=== PATIENT | male | born 1940 | race Caucasian/White ===

== ENCOUNTER 2023-06-20 13:35 | Emergency (ER) | payer MEDICARE, OTHER, SELFPAY ==
[2023-06-20 13:40] VITALS: BP 178/84; BMI 30.1
[2023-06-20 14:00] VITALS: BP 148/72
[2023-06-20 14:39] VITALS: BP 155/120
[2023-06-20 15:09] VITALS: BP 136/66
--- NOTE | 2023-06-20 15:28 | ED.GENMED ---
History of Present Illness
General
Chief Complaint: Blood Pressure Problem
Source: patient and spouse
Exam Limitations: none
Time Seen by Provider: 06/20/23 14:58
Nursing documentation reviewed up to this point in time: agreed with
Travel History
Have you had any contact with someone who has COVID-19?: No
Do you have any symptoms of coronavirus? Fever > 100 degrees, chills, cough, shortness of breath, sore throat, loss of taste or smell, muscle aches, or headache?: No
History of Present Illness
History of Present Illness:
82-year-old male with a past medical history of hypertension, hyperlipidemia, atrial fibrillation, COPD who presents to the emergency room with his for evaluation after an episode of transient dizziness and feeling flushed. Patient's was
in the GI lab for colonoscopy. Patient says that he had gotten up to go across the street and walk towards the cafeteria. He says he began to feel slightly lightheaded and flushed. He says that one of the nurses in the GI lab recommended that he
get his blood pressure checked. He called his primary doctor and unfortunately were closed and so he came here to the emergency room for assessment. He says that his symptoms have resolved he now feels well. He says his feeling of lightheadedness
lasted for a few minutes although his says that he looked flushed in the face for about an hour. He denies any other symptoms including chest pain, palpitations, shortness of breath, diaphoresis, nausea, vomiting, abdominal pain, flank pain.
He has notably had recent adjustments to his medication including increasing his dose of duloxetine, adding 5 mg p.o. amlodipine a few weeks ago, and adding hydrochlorothiazide as well. He has been compliant with all medications.
Past History
Past History
ED Past Medical History: Arrthythmia, Asthma, COPD, HTN, Hypercholesterolemia and Other
ED Past Surgical History: Other (thoracotomy)
Social History
Tobacco: Former smoker
Alcohol: None
Drug: None
Personal:
Living: with family
Employment: Retired
Family History
Family History: Other (Father with aneurysm and CAD in mother with heart failure and cancer)
Review of Systems
Review of Systems
All Other Systems: ROS reviewed and negative except as documented in HPI and ROS
Constitutional: Denies fever or chills
EENT: Denies sore throat or runny nose
Respiratory: Denies cough or trouble breathing
Cardiac: Denies chest pain, diaphoresis or palpitations
ABD/GI: Denies abdominal pain, nausea, vomiting or diarrhea
: Denies flank pain
Musculoskeletal: Denies neck pain or back pain
Neurological: Reports dizzy; Denies weakness or numbness
Phy Exam
Physical Exam
Physical Exam:
General: Awake, alert, oriented x3; no acute distress
Head: Normocephalic, atraumatic
Eyes: Conjunctiva normal, EOMI, pupils equal round reactive to light
Throat: Airway intact, handling secretions
Neck: Trachea midline, supple without meningismus
Lungs: Clear to auscultation bilaterally, no wheezing, rales, rhonchi
Heart: Regular rate and rhythm, no murmurs, gallops, or rubs
Abd: Soft, non distended, nontender, no abdominal masses
Neuro: Cranial nerves grossly intact, speech fluid, no gross motor or sensory deficit
Skin: no rash
Extremities: No edema in extremities, equal pulses in all extremities
Scores
Heart Failure Risk
Heart Failure Risk Score: Not Applicable
Heart Score for Chest Pain Patients
STEMI patient?: Not applicable
Withdrawal Assessment of Alcohol
Withdrawal Assessment Completed?: Not applicable
Course
Orders/Labs/Results
Orders:
Orders
06/20/23 14:59
Electrocardiogram (*1) Urgent
Reason for Study: Hypertension, Benign
EKG- Treatment ONCE
06/20/23 15:48
Electrocardiogram (*1) Urgent
Reason for Study: Vertigo / Dizzy
EKG- Treatment ONCE
06/20/23 15:51
Basic Metabolic Panel Urgent
Complete Blood Count/With Diff Urgent
Abnormal Lab Results
06/20/23
15:51
RBC 4.07 L 10^6/uL
(4.70-6.10)
MCV 99.3 H fL
(80.0-94.0)
MCH 33.9 H pg
(27.0-31.0)
MPV 11.2 H fL
(7.4-10.4)
Absolute Lymphs (auto) 0.9 L 10^3/uL
(1.2-3.4)
Absolute Monos (auto) 0.8 H 10^3/uL
(0.1-0.6)
Lymphocytes % 17.1 L %
(20.5-51.1)
Monocytes % 14.8 H %
(1.7-9.3)
Sodium 134 L mmol/L
(135-145)
Chloride 94 L mmol/L
(98-107)
Carbon Dioxide 31 H mmol/L
(22-30)
Glucose 112 H mg/dl
(70-99)
06/20/23 15:51
06/20/23 15:51
Vital Signs
Initial and Last Documented VS:
Initial Vital Signs
Temp Pulse Resp BP Pulse Ox
36.6 C 84 16 178/84 98
06/20/23 13:40 06/20/23 13:40 06/20/23 13:40 06/20/23 13:40 06/20/23 13:40
Last Documented Vital Signs
Temp Pulse Resp BP Pulse Ox
36.6 C 61 14 136/66 99
06/20/23 13:40 06/20/23 15:15 06/20/23 15:15 06/20/23 15:09 06/20/23 15:15
MDM/Problems Addressed
Differential Diagnosis Includes:
Orthostatic hypotension, vasovagal episode, polypharmacy, hypoglycemia, symptomatic anemia, electrolyte derangement, dysrhythmia
MDM/Problems Addressed:
82-year-old male with history as documented presents after an episode of transient dizziness and facial flushing. Feeling well here symptoms have resolved. Dizziness lasted for a few minutes and flushing last for about an hour. Hypertensive in
triage otherwise normal vitals�blood pressure normalized to 136/66 by my assessment. Exam as above. Will plan to place an IV and check basic screening labs and will check an EKG. Will monitor on telemetry. Reassess after the above. He did have
recent adjustments to multiple medications in his regimen which could be contributing.
Labs reviewed: CBC shows no anemia or other clinically significant abnormalities. BMP within acceptable range. EKG shows what appears to be sinus rhythm with sinus arrhythmia and premature junctional beat�discussed with cardiology to review EKG
who agrees. Patient's blood pressure has remained stable here. He remains well-appearing, asymptomatic on clinical reassessment. No clear emergent pathology based on history and exam with negative workup as above. Patient is medically stable for
discharge to follow-up with his primary physician as an outpatient. He feels very comfortable with this plan. Spoke about return precautions all questions were answered.
Chronic conditions affecting care:
Hypertension, hyperlipidemia, atrial fibrillation
Acute Exacerbation and/or Progression of Chronic Illness:
Acutely hypertensive resolved without intervention continue to monitor but no additional antihypertensive indicated at present
Acute Exacerbation and/or Progression of Chronic Illness: HTN
*Pulse Oximetry
Patient hypoxic: no
*EKG
Interpreted by ED Provider?: Yes
Heart Rate: 70
Rate: normal
Rhythm: sinus and sinus arrhythmia
[place]: normal axis
Interval: first degree heart block
QRS Pattern: normal QRS
Ischemia: no ischemia
*Critical Care Note
Total Time (30-74mins, 75-104mins- exclusive of procedures): Not Applicable
Data Reviewed
Review of Other/Old Records Reveals: Labs and Records
Source: patient, records and spouse
Patient Management
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
ED Attending Note
-
Portions of this chart may have been created with voice recognition software.� Occasional wrong word or��sound alike� substitutions may have occurred due to the inherent limitations of voice recognition software.
Discharge Plan
Departure
Patient Disposition: Home (Routine Discharge)
Date of Disposition: 06/20/23
Time of Disposition: 17:13
Patient with high blood pressure during this ER visit?: Yes
Discharge Problem:
Hypertension, Dizziness
Instructions: High Blood Pressure (DC), Dizziness, Adult ED
Prescriptions:
No Action
multivitamin with folic acid [Tab-A-Johanna] 1 TABLET tablet
1 tab PO DAILY
finasteride 5 MG tablet
5 mg PO QPM
albuterol sulfate 1 PUFF HFA aerosol inhaler
2 puff inhalation R Q4 PRN (Reason: sob/wheezing)
cholecalciferol (vitamin D3) 2,000 UNITS tablet
2,000 units PO DAILY
lorazepam 0.5 MG tablet
0.25 mg PO DAILY PRN (Reason: anxiety)
Patient Comments:
04/25/2022: last filled 12/04/21, 30 tabs for 30 days
Eliquis 5 MG tablet
5 mg PO BID Qty: 30 0RF
sennosides-docusate sodium 1 TABLET tablet
2 tab PO QPM
metoprolol succinate [Toprol XL] 25 MG tablet extended release 24 hr
12.5 mg PO DAILY
pravastatin 20 mg tablet
20 mg PO DAILY
duloxetine 60 mg capsule,delayed release(DR/EC)
60 mg PO DAILY
Motegrity 2 mg tablet
2 mg PO DAILY
prednisone 10 mg tablet
10 mg PO DIRECTED Qty: 6 0RF
Rx Instructions:
20mg daily for 2 days starting tomorrow
10MG daily for 2 days and stop
aripiprazole [Abilify] 2 mg tablet
2 mg PO DAILY Qty: 30 0RF
Rx Instructions:
new depression medication
cefixime 400 mg capsule
400 mg PO DAILY Qty: 4 0RF
Referrals:
Dilshad Wilkerson DO [Family Provider] - Call in 1-3 days for appt
Activity Restrictions/Additional Instructions:
Thank you for visiting the Emergency Department at [facility].
1. Please schedule a follow up appointment as directed. Call first thing tomorrow morning to make an appointment.
2. If indicated, please take your medications as instructed and indicated on discharge paperwork.
3. If any of your symptoms do not improve, or persist, or become more severe within 6-12 hours, please return to the emergency department for further care.
4. Please return to the emergency department if you develop a headache, neck pain/stiffness, fever greater than 100.4F, chest pain, shortness of breath, persistent nausea, vomiting, slurred speech, difficulty walking, numbness/tingling, weakness,
signs of infection or any other symptoms that are worrisome to you.
Please call [phone] if you have any questions.
Interventions
Interventions:
*Risk Screen - Suicide Last Done: 06/20/23 13:40
*General Assessment Last Done: 06/20/23 14:56
*Neglect/Abuse Screening Last Done: 06/20/23 13:40
ED- Fall Risk Assessment Last Done: 06/20/23 14:56
*ED COVID-19 Vaccine History Last Done: 06/20/23 13:40
ED- Cardiac Assessment Last Done: 06/20/23 14:35
ED- Pulmonary Assessment Last Done: 06/20/23 14:56
Discharge Date and Time
Print Language: CHINESE
[2023-06-20 16:11] LABS: % Basophils 0.4 % (0-2); % Eosinophils 0.5 % (0-6); % Immature Granulocytes 0.5 % (0-0.5); % Lymphocytes 17.1 % (20.5-51.1); % Monocytes 14.8 % (1.7-9.3); % Neutrophils 66.7 % (42.2-75.2); Absolute Lymphocytes 0.9 10^3/uL (1.2-3.4); Absolute Monocytes 0.8 10^3/uL (0.1-0.6); Absolute Neutrophils 3.7 10^3/uL (1.4-6.5); Hematocrit 40.4 % (39.0-52.0); Hemoglobin 13.8 g/dL (13.0-18.0); Mean Corp Hgb Conc. 34.2 g/dL (33.0-37.0); Mean Corpuscular Hgb 33.9 pg (27.0-31.0); Mean Corpuscular Volume 99.3 fL (80.0-94.0); Mean Platelet Volume 11.2 fL (7.4-10.4); Nucleated Red Blood Cells % 0 % (-); Platelet Count 155 10^3/uL (130-400); Red Blood Cell Count 4.07 10^6/uL (4.70-6.10); Red Cell Dist. Width 12.6 % (11.5-14.5); White Blood Cell Count 5.5 10^3/uL (4.8-10.8)
[2023-06-20 16:54] LABS: Blood Urea Nitrogen 20 mg/dl (9-20); Calcium 9.7 mg/dl (8.4-10.2); Carbon Dioxide 31 mmol/L (22-30); Chloride 94 mmol/L (98-107); Estimated Creatinine Clearance 76 ml/min; Glucose 112 mg/dl (70-99); Sodium 134 mmol/L (135-145); eGFR > 60.00
== END 2023-06-20 17:17 | disposition home or self-care (01) ==
LOC: EMR 13:35
PROVIDERS: EMERGENCY PHYSICIAN Emergency Medicine; FAMILY PHYSICIAN Family Medicine
DX: I10 Essential (primary) hypertension (principal); R42 Dizziness and giddiness; E78.00 Pure hypercholesterolemia, unspecified; I48.91 Unspecified atrial fibrillation; Z87.891 Personal history of nicotine dependence
CPT/HCPCS: 99284; 80048; 85025; 93005

== ENCOUNTER 2023-07-17 08:41 | Emergency (ER) | payer MEDICARE, OTHER, SELFPAY ==
[2023-07-17 08:47] VITALS: BP 180/93
[2023-07-17 09:14] VITALS: BP 146/83
--- NOTE | 2023-07-17 09:28 | ED.GENMED ---
History of Present Illness
General
Chief Complaint: Abdominal Pain
Source: patient
Exam Limitations: none
Time Seen by Provider: 07/17/23 08:52
Nursing documentation reviewed up to this point in time: agreed with
Travel History
Have you had any contact with someone who has COVID-19?: No
Do you have any symptoms of coronavirus? Fever > 100 degrees, chills, cough, shortness of breath, sore throat, loss of taste or smell, muscle aches, or headache?: No
History of Present Illness
History of Present Illness:
82 y/o M with h/o Afib on eliquis, htn, hld
here with lower abd pain, nauase, back pain for about a few days
[place] feeling [place] says that he thought he was getting a UTI so he called his family doctor on 4�15 and was called in a prescription for Levaquin which patient took 1 dose of and then ended up going to urgent care on 4�16 where they took a urine sample and said
that that he had a UTI. The switched him to Macrobid which she took for 5 days. Patient says he is continue to have some urinary urgency and frequency and pressure in his lower abdomen as well as feeling nauseous. The nausea seems to be a chronic
issue for him. It got a little bit worse throughout all of this. He went to his family doctor on 4�22 who checked a urinalysis but did not tell the patient the results and sent a culture and started him empirically on Levaquin which she took 2
doses of, and patient says that he has not had a good bowel movement in the last several days. He was able to pass a little bit of stool yesterday. So he feels constipated as well as having the continued lower abdominal pain which is a little bit
into his back. He is also very nauseous. Patient has vomited up 1 time in the last 24 hours. His family doctor gave him Zofran which she has taken several doses of and he seems to not throw up but continued to have nausea. Patient is also had
some issues with depression and anxiety and had a few months ago had been going to [facility] for outpatient resources. Patient's having some anxiety that is ongoing and thus his antidepressant was increased recently. He is not suicidal or feeling
fairly anxious now. Patient does have issues with chronic constipation, when he started feeling constipated did use senna as well as a Dulcolax last night. He has not had a good bowel movement today. He denies fevers and chills, dysuria, penile
discharge, rectal pressure
Past History
Past History
ED Past Medical History: Arrthythmia, Asthma, COPD, HTN, Hypercholesterolemia and Other
ED Past Surgical History: Other (thoracotomy)
Social History
Tobacco: Former smoker
Alcohol: None
Drug: None
Personal:
Living: with family
Employment: Retired
Family History
Family History: Other (Father with aneurysm and CAD in mother with heart failure and cancer)
Review of Systems
Review of Systems
Allergies reviewed?: Yes
All Other Systems: Not applicable
Phy Exam
Physical Exam
Physical Exam:
GENERAL: Alert , in no apparent distress
EYE: pupils equal and reactive
NECK: Supple
ENT: o/p clr, dry mouth
CARDIAC: Regular rate and rhythm .
LUNGS: Clear breath sounds bilaterally, no acute respiratory distress, no wheezes/rales/rhonchi
ABDOMEN: Soft, obese, maybe mildly distended without focal tenderness, no r/g, no cvat, normal bowel sounds
Rectal there is a very small amount of stool, no fecal impaction, brown and heme-negative
NEUROLOGICAL: Alert and oriented, no focal neuro deficits
SKIN: Warm and dry, skin intact.
MUSCULOSKELETAL: No edema, well perfused. neg dewey's sign
PSYCH: Normal and appropriate interaction.
Course
Orders/Labs/Results
Orders:
Orders
07/17/23 09:19
Electrocardiogram (*1) Urgent
Reason for Study: Vertigo / Dizzy
EKG- Treatment ONCE
0.9% Sodium Chloride 500 ml [Nss] 500 ml IV BOLUS
07/17/23 09:33
Complete Blood Count/With Diff Urgent
Comprehensive Metabolic Panel Urgent
Lipase Urgent
Urinalysis Reflex To Culture Urgent
Date Specimen was Collected: 07/17/23
Time Specimen was Collected: 09:20
07/17/23 09:57
CT Abd/Pel (IV only)-DH only Urgent
Comment:
Reason For Exam: lower abd pain, back pain, nausea, constipation
07/17/23 10:36
Ondansetron Injectable [Zofran] 4 mg IV NOW STA
07/17/23 12:12
Potassium Chloride [KCl] 20 meq PO NOW STA
07/17/23 12:56
Pantoprazole [Protonix] 20 mg PO NOW STA
Abnormal Lab Results
07/17/23
09:33
RBC 4.38 L 10^6/uL
(4.70-6.10)
MCV 96.1 H fL
(80.0-94.0)
MCH 34.2 H pg
(27.0-31.0)
MPV 10.6 H fL
(7.4-10.4)
Absolute Lymphs (auto) 0.7 L 10^3/uL
(1.2-3.4)
Absolute Monos (auto) 0.8 H 10^3/uL
(0.1-0.6)
Lymphocytes % 12.7 L %
(20.5-51.1)
Monocytes % 13.9 H %
(1.7-9.3)
Sodium 128 L mmol/L
(135-145)
Potassium 3.3 L mmol/L
(3.5-5.1)
Chloride 91 L mmol/L
(98-107)
Glucose 113 H mg/dl
(70-99)
Urine Ketones Trace A
(Negative)
07/17/23 09:33
07/17/23 09:33
Vital Signs
Initial and Last Documented VS:
Initial Vital Signs
Temp Pulse Resp BP Pulse Ox
97.6 F 85 18 180/93 99
07/17/23 08:47 07/17/23 08:47 07/17/23 08:47 07/17/23 08:47 07/17/23 08:47
Last Documented Vital Signs
Temp Pulse Resp BP Pulse Ox
97.6 F 64 13 159/75 98
07/17/23 08:47 07/17/23 12:45 07/17/23 12:45 07/17/23 12:00 07/17/23 12:45
MDM/Problems Addressed
Differential Diagnosis Includes:
constipation, UTI, diverticulitis
MDM/Problems Addressed:
82-year-old male with multiple medical problems presents for intermittent crampy lower abdominal pain and back pain in the setting of a recently diagnosed UTI on his second antibiotic. Patient also feels very constipated, he normally moves his
bowels once a day but has not had a good bowel movement in several days. He has tried 1 dose of stool softener and stool laxative without relief. He is not vomiting but he is very nauseous but turns out this nausea has been ongoing for 6 months.
He sees a GI doctor. He has not had a recent endoscopy and has not prescribed a PPI chronically. His family doctor saw him a few days ago and gave him Zofran prescription which does seem to help mildly. He is not vomiting but does feel
chronically nauseous. He is on his second day of Levaquin for presumed UTI, the culture was taken in the family doctor's office 2 days ago. On exam the patient has very mild generalized lower abdominal tenderness without any focality, he has no
guarding or rebound. He has some minimal amount of stool in the colon without any fecal impaction, the stool is light brown and heme-negative. His lungs are clear. He has no focal weakness. His urinalysis showed only mild ketones. Patient has
no significant leukocytosis
His potassium was slightly low, sodium slightly low but I believe in the setting of not eating since he was told to use a clear liquid diet this is probably a hypovolemic hyponatremia. He was given a small amount of fluids and an oral dose of
potassium. His CT scan was reviewed with the radiologist, she does see a mild amount of stool in his colon but is not severely constipated. He has no other acute findings to cause for his pain. He was reevaluated after Zofran and feels somewhat
better. We will trial him home with continuing the antibiotic, presuming that maybe the urine is been partially treated. Lactulose for stool laxative rather than Dulcolax, discussed with ED attending Dr. Holland. And we will trial him on
Protonix 20 mg because of his chronic persistent nausea, he will call his GI doctor. Patient will return if worse
*Critical Care Note
Total Time (30-74mins, 75-104mins- exclusive of procedures): Not Applicable
ED Attending Note
-
Portions of this chart may have been created with voice recognition software.� Occasional wrong word or��sound alike� substitutions may have occurred due to the inherent limitations of voice recognition software.
Discharge Plan
Departure
Patient Disposition: Home (Routine Discharge)
Date of Disposition: 07/17/23
Time of Disposition: 12:38
Patient with high blood pressure during this ER visit?: No
Condition: Fair
Discharge Problem:
Constipation, Hyponatremia, Hypokalemia, Chronic nausea
Instructions: Constipation, Adult (DC), [place] Diet
Prescriptions:
New
lactulose 20 gram packet
20 g PO DAILY PRN (Reason: Constipation) 5 Days Qty: 5 0RF
pantoprazole [Protonix] 20 mg tablet,delayed release (DR/EC)
20 mg PO DAILY Qty: 7 0RF
No Action
multivitamin with folic acid [Tab-A-Johanna] 1 TABLET tablet
1 tab PO DAILY
finasteride 5 MG tablet
5 mg PO QPM
albuterol sulfate 1 PUFF HFA aerosol inhaler
2 puff inhalation R Q4 PRN (Reason: sob/wheezing)
cholecalciferol (vitamin D3) 2,000 UNITS tablet
2,000 units PO DAILY
lorazepam 0.5 MG tablet
0.25 mg PO DAILY PRN (Reason: anxiety)
Patient Comments:
04/25/2022: last filled 12/04/21, 30 tabs for 30 days
Eliquis 5 MG tablet
5 mg PO BID Qty: 30 0RF
sennosides-docusate sodium 1 TABLET tablet
2 tab PO QPM
metoprolol succinate [Toprol XL] 25 MG tablet extended release 24 hr
12.5 mg PO DAILY
pravastatin 20 mg tablet
20 mg PO DAILY
duloxetine 60 mg capsule,delayed release(DR/EC)
60 mg PO DAILY
Motegrity 2 mg tablet
2 mg PO DAILY
prednisone 10 mg tablet
10 mg PO DIRECTED Qty: 6 0RF
Rx Instructions:
20mg daily for 2 days starting tomorrow
10MG daily for 2 days and stop
aripiprazole [Abilify] 2 mg tablet
2 mg PO DAILY Qty: 30 0RF
Rx Instructions:
new depression medication
cefixime 400 mg capsule
400 mg PO DAILY Qty: 4 0RF
Referrals:
Dilshad Wilkerson DO [Family Provider] -
Activity Restrictions/Additional Instructions:
There were not any concerning findings to cause your symptoms today. You did have some stool in your colon but were not showing any signs of a bowel obstruction. Stop your senna and your Dulcolax and instead take lactulose once a day for a few
days in a row until you have a good bowel movement (no more than 5 days)
drink fluids
bland diet
if you have nausea you can try zofran every 12 hurs as needed for nausea- but you need to see a GI doctor for further work up for the nausea
take protonix once a day on an empty stomach for a week to see if this helps
you need to have yuor blood work repeated next week, so call and make an appointment with your doctor
continue your antibiotics
return for: wrosening pain, fever, vomiting, severe diarrhea, weakness, or any concerns.
Interventions
Interventions:
*Risk Screen - Suicide Last Done: 07/17/23 11:03
*General Assessment Last Done: 07/17/23 11:03
*Neglect/Abuse Screening Last Done: 07/17/23 11:03
ED- Fall Risk Assessment Last Done: 07/17/23 13:21
*ED COVID-19 Vaccine History Last Done: 07/17/23 08:47
*Nursing Disposition Last Done: 07/17/23 13:21
IT-S[facility]o-Qhmamptc[facility] Assessment Last Done: 07/17/23 09:00
Discharge Date and Time
Discharge Date/Time: 07/17/23 13:15
Print Language: SYRIAN
[2023-07-17 09:33] VITALS: BMI 29.4
[2023-07-17] MEDS: NSS 500 IV (09:36)
[2023-07-17 09:43] LABS: % Basophils 0.5 % (0-2); % Eosinophils 0.5 % (0-6); % Immature Granulocytes 0.5 % (0-0.5); % Lymphocytes 12.7 % (20.5-51.1); % Monocytes 13.9 % (1.7-9.3); % Neutrophils 71.9 % (42.2-75.2); Absolute Lymphocytes 0.7 10^3/uL (1.2-3.4); Absolute Monocytes 0.8 10^3/uL (0.1-0.6); Absolute Neutrophils 4.1 10^3/uL (1.4-6.5); Hematocrit 42.1 % (39.0-52.0); Mean Corp Hgb Conc. 35.6 g/dL (33.0-37.0); Mean Corpuscular Hgb 34.2 pg (27.0-31.0); Mean Corpuscular Volume 96.1 fL (80.0-94.0); Mean Platelet Volume 10.6 fL (7.4-10.4); Nucleated Red Blood Cells % 0 % (-); Platelet Count 144 10^3/uL (130-400); Red Blood Cell Count 4.38 10^6/uL (4.70-6.10); Red Cell Dist. Width 12.9 % (11.5-14.5); White Blood Cell Count 5.7 10^3/uL (4.8-10.8)
[2023-07-17 09:44] LABS: Urine Albumin Negative (Neg - Trace); Urine Bilirubin Negative (Negative); Urine Character Clear (Clear); Urine Color Yellow; Urine Glucose Negative (Negative); Urine Ketone Trace (Negative); Urine Leukocyte Negative (Negative); Urine Nitrite Negative (Negative); Urine Occult Blood Negative (Negative); Urine Urobilinogen Negative (Neg - 1+)
[2023-07-17 10:00] VITALS: BP 147/78
[2023-07-17 10:04] LABS: ALT (SGPT) 21 U/L (0-50); AST (SGOT) 27 U/L (17-59); Alkaline Phosphatase 60 U/L (38-126); Blood Urea Nitrogen 15 mg/dl (9-20); Calcium 9.9 mg/dl (8.4-10.2); Carbon Dioxide 30 mmol/L (22-30); Chloride 91 mmol/L (98-107); Estimated Creatinine Clearance 76 ml/min; Glucose 113 mg/dl (70-99); Lipase 87 U/L (23-300); Potassium 3.3 mmol/L (3.5-5.1); Sodium 128 mmol/L (135-145); Total Bilirubin 0.9 mg/dl (0.2-1.3); Total Protein 7.5 g/dl (6.3-8.2); eGFR > 60.00
[2023-07-17] MEDS: ZOFRAN 4 MG IV (10:56)
[2023-07-17 11:25] VITALS: BP 157/74
[2023-07-17 12:00] VITALS: BP 159/75
[2023-07-17] MEDS: KCL 20 MEQ PO (13:02)
[2023-07-17] MEDS: PROTONIX 20 MG PO (13:03)
== END 2023-07-17 13:15 | disposition home or self-care (01) ==
LOC: EMR 08:41
PROVIDERS: Physician Assistant; EMERGENCY PHYSICIAN Emergency Medicine; FAMILY PHYSICIAN Family Medicine
DX: K59.09 Other constipation (principal); E87.1 Hypo-osmolality and hyponatremia; E87.6 Hypokalemia; R11.0 Nausea
CPT/HCPCS: 99285; 96374; 74177; 80053; 81003; 83690; 85025; 93005; Q9967

== ENCOUNTER 2023-07-20 07:17 | Emergency (ER) | payer MEDICARE, OTHER, SELFPAY ==
[2023-07-20] VITALS (8 sets, daily range): BP systolic 121–145; BP diastolic 66–78; BMI 27.6
--- NOTE | 2023-07-20 07:52 | ED.GENMED ---
History of Present Illness
General
Chief Complaint: Abdominal Symptoms
Source: patient
Exam Limitations: none
Time Seen by Provider: 07/20/23 07:33
Nursing documentation reviewed up to this point in time: agreed with
Travel History
Have you had any contact with someone who has COVID-19?: No
Do you have any symptoms of coronavirus? Fever > 100 degrees, chills, cough, shortness of breath, sore throat, loss of taste or smell, muscle aches, or headache?: No
History of Present Illness
History of Present Illness:
82 yo male presents to the emergency department due to not having a bowel movement for 10 days. He was seen in the emergency department, and had a CT scan that did not show blockage. Now he is having left lower quadrant abdominal pain. He has a
history of diverticulitis as well. He still is not had a normal bowel movement.
Past History
Past History
ED Past Medical History: Arrthythmia, Asthma, COPD, HTN, Hypercholesterolemia and Other
ED Past Surgical History: Other (thoracotomy)
Social History
Tobacco: Former smoker
Alcohol: None
Drug: None
Personal:
Living: with family
Employment: Retired
Family History
Family History: Other (Father with aneurysm and CAD in mother with heart failure and cancer)
Review of Systems
Review of Systems
Allergies reviewed?: Yes
All Other Systems: Not applicable
Constitutional: Reports no symptoms
EENT: Reports no symptoms
Respiratory: Reports no symptoms
Cardiac: Reports no symptoms
ABD/GI: Reports abdominal pain and constipated
: Reports no symptoms
Musculoskeletal: Reports no symptoms
Skin: Reports no symptoms
Neurological: Reports no symptoms
Endocrine: Reports no symptoms
Hematologic/Lymphatic: Reports no symptoms
Psychiatric: Reports no symptoms
Phy Exam
Physical Exam
Physical Exam:
Physical Exam
General: no apparent distress, not acutely ill
Neck: supple. no meningeal signs. normal posterior pharynx
Heart: s1/s2 regular rate and rhythm, no murmur. equal radial
pulses.
HEENT: Pupils equal round reactive to light, EOMI
Lungs: no acute respiratory distress. clear bilaterally
Abdomen: normal bowel sounds. Mild left lower quadrant tenderness, no rebound or guarding. No CVAT
Neuro: alert and oriented. no focal neurological deficits cranial nerves II through XII intact
Skin: no rash
Psychiatric: well kept. interactive and cooperative
Extremities: no edema. no calf tenderness. negative homans. good distal pulses
Course
Orders/Labs/Results
Orders:
Orders
07/20/23 07:49
IV Insert/Care/Rem.- Treatment PRN
Iohexol [Omnipaque] See Protocol PO NOW STA
07/20/23 07:50
CT Abd/pel W Iv And Oral Contr Urgent
Comment:
Reason For Exam: LLQ abdominal pain, constipation
07/20/23 08:16
Complete Blood Count/With Diff Urgent
Comprehensive Metabolic Panel Urgent
Lipase Urgent
07/20/23 11:36
Enema- Treatment ONCE
Type: Milk of Molasses
Abnormal Lab Results
07/20/23
08:16
RBC 4.05 L 10^6/uL
(4.70-6.10)
MCV 98.5 H fL
(80.0-94.0)
MCH 33.8 H pg
(27.0-31.0)
Absolute Lymphs (auto) 0.7 L 10^3/uL
(1.2-3.4)
Absolute Monos (auto) 0.7 H 10^3/uL
(0.1-0.6)
Immature Gran % 0.6 H %
(0-0.5)
Lymphocytes % 12.8 L %
(20.5-51.1)
Monocytes % 14.1 H %
(1.7-9.3)
Sodium 130 L mmol/L
(135-145)
Chloride 91 L mmol/L
(98-107)
Carbon Dioxide 33 H mmol/L
(22-30)
Glucose 112 H mg/dl
(70-99)
07/20/23 08:16
07/20/23 08:16
Vital Signs
Initial and Last Documented VS:
Initial Vital Signs
Temp Pulse Resp BP Pulse Ox
97.4 F 60 20 145/78 100
07/20/23 07:19 07/20/23 07:19 07/20/23 07:19 07/20/23 07:19 07/20/23 07:19
Last Documented Vital Signs
Temp Pulse Resp BP Pulse Ox
97.9 F 64 16 135/66 99
07/20/23 11:00 07/20/23 11:45 07/20/23 11:00 07/20/23 11:00 07/20/23 11:45
MDM/Problems Addressed
Differential Diagnosis Includes:
Bowel obstruction, diverticulitis
MDM/Problems Addressed:
82-year-old male with constipation, no signs of bowel obstruction. Improved after enema. Instructions given on how to avoid constipation.
Chronic conditions affecting care: HTN and Arrhythmia
Acute Exacerbation and/or Progression of Chronic Illness: HTN
*Radiology
Radiology exam reviewed: radiology read reviewed (CT abdomen pelvis shows constipation.)
*Pulse Oximetry
Patient hypoxic: no
*EKG
Interpreted by ED Provider?: NA
*Restaurant Assistant Manager Interpretation
Rate: Restaurant Assistant Manager- N/A
*Critical Care Note
Total Time (30-74mins, 75-104mins- exclusive of procedures): Not Applicable
Patient Management
Social determinants of health affecting care: Living situation
Escalation/DeEscalation of care consider admission/obs:
Admit not indicated
ED Attending Note
-
Portions of this chart may have been created with voice recognition software.� Occasional wrong word or��sound alike� substitutions may have occurred due to the inherent limitations of voice recognition software.
Discharge Plan
Departure
Patient Disposition: Home (Routine Discharge)
Date of Disposition: 07/20/23
Time of Disposition: 12:52
Patient with high blood pressure during this ER visit?: Yes
Condition: Good
Discharge Problem:
Acute constipation
Instructions: Constipation, Adult (DC), BLOOD PRESSURE
Prescriptions:
No Action
multivitamin with folic acid [Tab-A-Johanna] 1 TABLET tablet
1 tab PO DAILY
finasteride 5 MG tablet
5 mg PO QPM
albuterol sulfate 1 PUFF HFA aerosol inhaler
2 puff inhalation R Q4 PRN (Reason: sob/wheezing)
cholecalciferol (vitamin D3) 2,000 UNITS tablet
2,000 units PO DAILY
lorazepam 0.5 MG tablet
0.25 mg PO DAILY PRN (Reason: anxiety)
Patient Comments:
04/25/2022: last filled 12/04/21, 30 tabs for 30 days
Eliquis 5 MG tablet
5 mg PO BID Qty: 30 0RF
sennosides-docusate sodium 1 TABLET tablet
2 tab PO QPM
metoprolol succinate [Toprol XL] 25 MG tablet extended release 24 hr
12.5 mg PO DAILY
pravastatin 20 mg tablet
20 mg PO DAILY
duloxetine 60 mg capsule,delayed release(DR/EC)
60 mg PO DAILY
Motegrity 2 mg tablet
2 mg PO DAILY
aripiprazole [Abilify] 2 mg tablet
2 mg PO DAILY Qty: 30 0RF
cefixime 400 mg capsule
400 mg PO DAILY Qty: 4 0RF
lactulose 20 gram packet
20 g PO DAILY PRN (Reason: Constipation) 5 Days Qty: 5 0RF
pantoprazole [Protonix] 20 mg tablet,delayed release (DR/EC)
20 mg PO DAILY Qty: 7 0RF
Referrals:
Dilshad Wilkerson DO [Family Provider] - Call in 1-3 days for appt
Interventions
Interventions:
*Risk Screen - Suicide Last Done: 07/20/23 07:19
*General Assessment Last Done: 07/20/23 07:19
*Neglect/Abuse Screening Last Done: 07/20/23 07:19
ED- Fall Risk Assessment Last Done: 07/20/23 07:35
*ED COVID-19 Vaccine History Last Done: 07/20/23 07:35
GB-Siolbr-Pzwrkvyaaz Assessment Last Done: 07/20/23 07:35
Discharge Date and Time
Print Language: [place]ESE
[2023-07-20] MEDS: OMNIPAQUE 50 ML PO (08:15)
[2023-07-20 08:46] LABS: % Basophils 0.4 % (0-2); % Eosinophils 0.4 % (0-6); % Immature Granulocytes 0.6 % (0-0.5); % Lymphocytes 12.8 % (20.5-51.1); % Monocytes 14.1 % (1.7-9.3); % Neutrophils 71.7 % (42.2-75.2); Absolute Lymphocytes 0.7 10^3/uL (1.2-3.4); Absolute Monocytes 0.7 10^3/uL (0.1-0.6); Absolute Neutrophils 3.7 10^3/uL (1.4-6.5); Hematocrit 39.9 % (39.0-52.0); Hemoglobin 13.7 g/dL (13.0-18.0); Mean Corp Hgb Conc. 34.3 g/dL (33.0-37.0); Mean Corpuscular Hgb 33.8 pg (27.0-31.0); Mean Corpuscular Volume 98.5 fL (80.0-94.0); Mean Platelet Volume 10.2 fL (7.4-10.4); Nucleated Red Blood Cells % 0 % (-); Platelet Count 155 10^3/uL (130-400); Red Blood Cell Count 4.05 10^6/uL (4.70-6.10); Red Cell Dist. Width 12.9 % (11.5-14.5); White Blood Cell Count 5.2 10^3/uL (4.8-10.8)
[2023-07-20 09:00] LABS: ALT (SGPT) 17 U/L (0-50); AST (SGOT) 26 U/L (17-59); Albumin 4.7 g/dl (3.5-5.0); Alkaline Phosphatase 62 U/L (38-126); Blood Urea Nitrogen 18 mg/dl (9-20); Calcium 9.6 mg/dl (8.4-10.2); Carbon Dioxide 33 mmol/L (22-30); Chloride 91 mmol/L (98-107); Estimated Creatinine Clearance 63 ml/min; Glucose 112 mg/dl (70-99); Lipase 67 U/L (23-300); Potassium 3.5 mmol/L (3.5-5.1); Sodium 130 mmol/L (135-145); eGFR > 60.00
--- NOTE | 2023-07-20 09:46 | EDRN ---
the pt pressed the call bob and this RN entered the pts room, the pt stated that he needed to use the bathroom, this RN unhooked the pt from the monitor and the pt was able to ambulate to the bathroom and back, the pt is resting in stretcher in the
lowest position, side rails up x2, call bob within reach, HOB elevated, will continue to monitor the pt closely
--- NOTE | 2023-07-20 10:04 | EDRN ---
this RN noticed that the pts HR dropped from the 50's to 40bpm for a few seconds, this RN notified Dr. Mason, the pt is currently NSB in the 50's now, will continue to monitor the pt closely
--- NOTE | 2023-07-20 12:10 | EDRN ---
enema performed, awaiting for result
--- NOTE | 2023-07-20 12:35 | EDRN ---
Dr. Mason currently at the pts bedside speaking to the pts , the pt is currently in the bathroom attempting to have a bowel movement
--- NOTE | 2023-07-20 13:00 | EDRN ---
Dr. Mason currently at the pts bedside speaking with the pt and the pts
--- NOTE | 2023-07-20 13:55 | EDRN ---
per the provider Dr. Mason, the pt was given a bottle of Mag Citrate to go home with
--- NOTE | 2023-07-20 14:05 | EDRN ---
the pt got up to go to the bathroom two more times with a positive result
== END 2023-07-20 14:07 | disposition home or self-care (01) ==
LOC: EMR 07:17
PROVIDERS: EMERGENCY PHYSICIAN Emergency Medicine; FAMILY PHYSICIAN Family Medicine
DX: K59.00 Constipation, unspecified (principal); J45.909 Unspecified asthma, uncomplicated; J44.9 Chronic obstructive pulmonary disease, unspecified; I10 Essential (primary) hypertension; E78.00 Pure hypercholesterolemia, unspecified; Z82.49 Family history of ischemic heart disease and other diseases of the circulatory system; Z87.891 Personal history of nicotine dependence
CPT/HCPCS: 99284; 74177; 80053; 83690; 85025; Q9967

== ENCOUNTER → 2023-08-29 14:23 | Outpatient (REF) | payer MEDICARE, OTHER, SELFPAY ==
[2023-08-31 11:17] LABS: H. pylori Breath Test Negative (Negative)
== END ==
LOC: REG 14:23
PROVIDERS: ATTENDING PHYSICIAN Internal Medicine Gastroenterology; FAMILY PHYSICIAN Family Medicine; REFERRING PHYSICIAN Internal Medicine
DX: R14.0 Abdominal distension (gaseous) (principal)
CPT/HCPCS: 36415; 83013

== ENCOUNTER → 2023-09-03 07:04 | Outpatient (REF) | payer MEDICARE, OTHER, SELFPAY | LOC: RAD 07:04 | PROVIDERS: ATTENDING PHYSICIAN Internal Medicine Gastroenterology; FAMILY PHYSICIAN Family Medicine | DX: R14.0 Abdominal distension (gaseous) (principal) | CPT/HCPCS: 78264; A9541 ==

== ENCOUNTER → 2023-09-03 12:20 | Outpatient (REF) | payer MEDICARE, OTHER, SELFPAY | LOC: WOUND 12:20 | PROVIDERS: ATTENDING PHYSICIAN Surgery; FAMILY PHYSICIAN Family Medicine | DX: L89.319 Pressure ulcer of right buttock, unspecified stage (principal); L89.329 Pressure ulcer of left buttock, unspecified stage; N32.81 Overactive bladder; I10 Essential (primary) hypertension | CPT/HCPCS: 99203 ==

== ENCOUNTER 2023-10-15 20:30 | Emergency (ER) | payer MEDICARE, OTHER, SELFPAY ==
[2023-10-15 20:31] VITALS: BMI 27.3
[2023-10-15 20:39] VITALS: BP 151/74
[2023-10-15 21:33] LABS: ALT (SGPT) 14 U/L (0-50); AST (SGOT) 23 U/L (17-59); Albumin 4.9 g/dl (3.5-5.0); Alkaline Phosphatase 72 U/L (38-126); Blood Urea Nitrogen 24 mg/dl (9-20); Calcium 10.2 mg/dl (8.4-10.2); Carbon Dioxide 24 mmol/L (22-30); Chloride 105 mmol/L (98-107); Estimated Creatinine Clearance 73 ml/min; Glucose 97 mg/dl (70-99); Lipase 87 U/L (23-300); Potassium 3.6 mmol/L (3.5-5.1); Sodium 139 mmol/L (135-145); Total Bilirubin 0.8 mg/dl (0.2-1.3); Total Protein 7.1 g/dl (6.3-8.2); eGFR > 60.00
[2023-10-15 22:00] VITALS: BP 137/79; BP 141/70
[2023-10-15 22:21] LABS: % Basophils 0.4 % (0-2); % Eosinophils 0.9 % (0-6); % Immature Granulocytes 0.6 % (0-0.5); % Lymphocytes 26.8 % (20.5-51.1); % Neutrophils 58.3 % (42.2-75.2); Absolute Lymphocytes 1.3 10^3/uL (1.2-3.4); Absolute Monocytes 0.6 10^3/uL (0.1-0.6); Absolute Neutrophils 2.7 10^3/uL (1.4-6.5); Hematocrit 36.3 % (39.0-52.0); Hemoglobin 13.1 g/dL (13.0-18.0); Mean Corp Hgb Conc. 36.1 g/dL (33.0-37.0); Mean Corpuscular Hgb 34.4 pg (27.0-31.0); Mean Corpuscular Volume 95.3 fL (80.0-94.0); Mean Platelet Volume 10.7 fL (7.4-10.4); Nucleated Red Blood Cells % 0 % (-); Platelet Count 136 10^3/uL (130-400); Red Blood Cell Count 3.81 10^6/uL (4.70-6.10); Red Cell Dist. Width 13.7 % (11.5-14.5); White Blood Cell Count 4.7 10^3/uL (4.8-10.8)
[2023-10-15] MEDS: PROTONIX IV 80 MG IV (22:28)
[2023-10-15] MEDS: CARAFATE 1 GRAM PO (22:30)
[2023-10-15] MEDS: NSS 500 IV (22:31)
--- NOTE | 2023-10-15 22:41 | ED.GENMED ---
History of Present Illness
General
Chief Complaint: Abdominal Symptoms
Source: patient, records and spouse
Exam Limitations: none
Time Seen by Provider: 10/15/23 21:39
Nursing documentation reviewed up to this point in time: agreed with
History of Present Illness
History of Present Illness:
Patient is an 83-year-old male who presents to the emergency department complaining of upper abdominal pain, gas and feeling distended. Patient's been nauseous but no vomiting or diarrhea. Patient's last bowel movement was yesterday without melena
or hematochezia. Patient denies chest pain and feels as though he cannot take a deep breath because of the gas and distention. Patient does have a known hiatal hernia. Patient is dropped 25 pounds since the beginning year because of a lack
appetite. Patient is being treated for SIBO. Patient does finish 10 days of Flagyl 3 times a day. Patient's symptoms have been going on for few days the pain became worse tonight. However the patient now is not having any pain. Patient does
have a history of COPD. Patient denies fever or chills, nasal congestion, sore throat or cough. Patient denies any chest pain or back pain.
Past History
Past History
ED Past Medical History: Arrthythmia, Asthma, COPD, HTN, Hypercholesterolemia and Other (sibo, hiatal hernia, chronic thrombocytopenia, lumbar stenosis, anxiety/depression, BPH)
ED Past Surgical History: Other (thoracotomy)
Social History
Tobacco: Former smoker
Alcohol: None
Drug: None
Personal:
Living: with family
Employment: Retired
Family History
Family History: Other (Father with aneurysm and CAD in mother with heart failure and cancer)
Review of Systems
Review of Systems
All Other Systems: ROS reviewed and negative except as documented in HPI and ROS
Constitutional: Reports weight loss; Denies fever or chills
EENT: Reports no symptoms
Respiratory: Reports trouble breathing; Denies cough
Cardiac: Reports no symptoms
ABD/GI: Reports abdominal pain, nausea and anorexia; Denies vomiting, diarrhea, constipated, bloody stools or black stools
: Reports no symptoms
Musculoskeletal: Reports no symptoms
Skin: Reports no symptoms
Neurological: Reports no symptoms
Hematologic/Lymphatic: Reports no symptoms
Phy Exam
Physical Exam
Physical Exam:
Physical Exam
General: mild distress, alert and appropriate, well nourished, well hydrated
HENT: Normocephalic, supple with no lymphadenopathy, no thyromegaly
Eyes: Clear sclera, conjuctiva without injection
Heart: Regular rhythm and rate. No S3, S4. No murmur. No NVD
Lungs: No respiratory distress, no stridor, lung sounds clear and equal bilaterally, chest wall symmetrical and nontender
Abdomen: Soft, minimal midepigastric tenderness without guarding or rebound, no organomegaly, no CVA tenderness, BS good
Neuro: Alert and oriented x 3, CN II - XII intact, no motor focality, no cerebellar dysfunction
Skin: no rash
Psychiatric: well kept. interactive and cooperative
Extremities: No edema, cyanosis, tenderness
Scores
Heart Failure Risk
Heart Failure Risk Score: Not Applicable
Heart Score for Chest Pain Patients
STEMI patient?: Not applicable
Withdrawal Assessment of Alcohol
Withdrawal Assessment Completed?: Not applicable
Course
Orders/Labs/Results
Orders:
Orders
10/15/23 20:33
Electrocardiogram (*1) Urgent
Reason for Study: Chest Pain
10/15/23 20:34
EKG- Treatment ONCE
10/15/23 21:08
Comprehensive Metabolic Panel Urgent
Lipase Urgent
10/15/23 22:00
Obstruct Series W/PA Chest [CR Obstruct Series W/pa Chest] Urgent
Comment:
Reason For Exam: upper abd pain and distension
10/15/23 22:02
0.9% Sodium Chloride 500 ml [Nss] 500 ml IV BOLUS
Pantoprazole [Protonix IV] 80 mg IV NOW STA
Sucralfate [Carafate] 1 gram PO NOW STA
10/15/23 22:13
Complete Blood Count/With Diff Urgent
Troponin I Urgent
Comment: .
10/16/23 00:35
Simethicone [Mylicon] 80 mg PO NOW STA
Abnormal Lab Results
10/15/23 10/15/23
21:08 22:13
WBC 4.7 L 10^3/uL
(4.8-10.8)
RBC 3.81 L 10^6/uL
(4.70-6.10)
Hct 36.3 L %
(39.0-52.0)
MCV 95.3 H fL
(80.0-94.0)
MCH 34.4 H pg
(27.0-31.0)
MPV 10.7 H fL
(7.4-10.4)
Immature Gran % 0.6 H %
(0-0.5)
Monocytes % 13.0 H %
(1.7-9.3)
BUN 24 H mg/dl
(9-20)
10/15/23 22:13
10/15/23 21:08
Vital Signs
Initial and Last Documented VS:
Initial Vital Signs
Temp Pulse Resp BP Pulse Ox
98.8 F 64 18 151/74 100
10/15/23 20:39 10/15/23 20:39 10/15/23 20:39 10/15/23 20:39 10/15/23 20:39
Last Documented Vital Signs
Temp Pulse Resp BP Pulse Ox
98.8 F 61 20 172/65 100
10/15/23 20:39 10/16/23 00:00 10/16/23 00:00 10/16/23 00:00 10/16/23 00:00
*Radiology
Radiology exam reviewed: radiology read reviewed (unremarkable)
*Pulse Oximetry
Patient hypoxic: no
*EKG
Interpreted by ED Provider?: Yes
EKG Intrepretation Date: 10/15/23
EKG Intrepretation Time: 22:48
Interpretation: abnormal
Comparison EKG: no changes
Heart Rate: 65
Rate: normal
Rhythm: sinus
[place]: normal axis
Interval: normal QT interval and first degree heart block
QRS Pattern: normal QRS
Ischemia: non-specific ST changes
*Family Service Caseworker Interpretation
Rate: normal
Interpretation: normal
Heart Rate: 80
Rhythm: sinus
*Critical Care Note
Total Time (30-74mins, 75-104mins- exclusive of procedures): Not Applicable
Update Note
Update Note:
Patient's workup essentially unremarkable. Patient does have stool and nonspecific bowel pattern. Patient is feeling better. Patient admits to possibly being overly anxious. Patient has an appointment with his singe winder on the .
Patient would like a referral to singe winder here. Will try simethicone for the patient. Patient will double his Protonix. Patient will start back on his MiraLAX.
ED Attending Note
-
Portions of this chart may have been created with voice recognition software.� Occasional wrong word or��sound alike� substitutions may have occurred due to the inherent limitations of voice recognition software.
Discharge Plan
Departure
Patient Disposition: Home (Routine Discharge)
Date of Disposition: 10/16/23
Time of Disposition: 00:37
Patient with high blood pressure during this ER visit?: Yes
Condition: Good
Discharge Problem:
Abdominal pain
Instructions: Constipation, Adult (DC), Abdominal Pain, BLOOD PRESSURE
Prescriptions:
New
simethicone 180 mg capsule
180 mg PO BID PRN (Reason: abdominal distention) Qty: 20 0RF
No Action
multivitamin with folic acid [Tab-A-Johanna] 1 TABLET tablet
1 tab PO DAILY
finasteride 5 MG tablet
5 mg PO QPM
albuterol sulfate 1 PUFF HFA aerosol inhaler
2 puff inhalation R Q4 PRN (Reason: sob/wheezing)
cholecalciferol (vitamin D3) 2,000 UNITS tablet
2,000 units PO DAILY
lorazepam 0.5 MG tablet
0.25 mg PO DAILY PRN (Reason: anxiety)
Patient Comments:
04/25/2022: last filled 12/04/21, 30 tabs for 30 days
Eliquis 5 MG tablet
5 mg PO BID Qty: 30 0RF
sennosides-docusate sodium 1 TABLET tablet
2 tab PO QPM
metoprolol succinate [Toprol XL] 25 MG tablet extended release 24 hr
12.5 mg PO DAILY
pravastatin 20 mg tablet
20 mg PO DAILY
duloxetine 60 mg capsule,delayed release(DR/EC)
60 mg PO DAILY
Motegrity 2 mg tablet
2 mg PO DAILY
aripiprazole [Abilify] 2 mg tablet
2 mg PO DAILY Qty: 30 0RF
cefixime 400 mg capsule
400 mg PO DAILY Qty: 4 0RF
lactulose 20 gram packet
20 g PO DAILY PRN (Reason: Constipation) 5 Days Qty: 5 0RF
pantoprazole [Protonix] 20 mg tablet,delayed release (DR/EC)
20 mg PO DAILY Qty: 7 0RF
Referrals:
Dilshad Wilkerson DO [Family Provider] - Follow up in 2-3 days
Sander Martínez MD [Active] - Call in 1-3 days for appt
Activity Restrictions/Additional Instructions:
Continue present medications and therapy. Start back up on your MiraLAX.
Interventions
Interventions:
*Risk Screen - Suicide Last Done: 10/15/23 20:39
*General Assessment Last Done: 10/15/23 20:39
*Neglect/Abuse Screening Last Done: 10/15/23 20:39
ED- Fall Risk Assessment Last Done: 10/15/23 21:22
LK-Ugmvhk-Uetkizqrzw Assessment Last Done: 10/15/23 21:22
Discharge Date and Time
Print Language: [place]
[2023-10-15 22:42] LABS: Troponin I < 0.012 ng/ml
[2023-10-15 23:00] VITALS: BP 172/65
[2023-10-16] VITALS: BP 172/65
[2023-10-16] MEDS: MYLICON 80 MG PO (00:46)
== END 2023-10-16 01:04 | disposition home or self-care (01) ==
LOC: EMR 20:30
PROVIDERS: EMERGENCY PHYSICIAN Emergency Medicine; FAMILY PHYSICIAN Family Medicine
DX: R10.10 Upper abdominal pain, unspecified (principal); I10 Essential (primary) hypertension; Z87.891 Personal history of nicotine dependence
CPT/HCPCS: 99285; 96374; 96361; 74022; 80053; 83690; 84484; 85025; 93005

== ENCOUNTER → 2023-10-21 13:37 | Outpatient (REF) | payer MEDICARE, OTHER, SELFPAY | LOC: WOUND 13:37 | PROVIDERS: ATTENDING PHYSICIAN Surgery; FAMILY PHYSICIAN Family Medicine | DX: L89.319 Pressure ulcer of right buttock, unspecified stage (principal); L89.329 Pressure ulcer of left buttock, unspecified stage; N32.81 Overactive bladder; I10 Essential (primary) hypertension | CPT/HCPCS: 99213 ==

== ENCOUNTER 2023-11-02 17:18 | Emergency (ER) | payer MEDICARE, OTHER, SELFPAY ==
[2023-11-02 17:23] VITALS: BP 147/68
--- NOTE | 2023-11-02 19:00 | ED.GENMED ---
History of Present Illness
General
Chief Complaint: Abdominal Symptoms
Source: patient
Exam Limitations: none
Time Seen by Provider: 11/02/23 18:10
History of Present Illness
History of Present Illness:
This is a 83 year old male that comes in with c/o abd pain. 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 States that he finished Flagyl a few weeks ago. States that he just can't eat. States that he has lost 30 pounds over the past
year since about . States that he had an endoscopy as he see's the GI specialist at [facility]. Stats that they want to do an Endoscopy on the . States that he has not had any lunch or dinner today as he is nauseated. States that he has
abd pain on both sided and that he has had diarrhea. States that he is SOB with the pain and lightheaded. States that he was started on Protonix 40mg BID by his PCP and Famotidine BID. States that he as also given Carafate but this made him very
sick so his PCP told him to hold off taking this. Denies any fever, chills, chest pain, vomiting, headache, urinary burning.
Past History
Past History
ED Past Medical History: Arrthythmia (Atrial fib), Asthma, Cancer (Skin CA), COPD, HTN, Hypercholesterolemia, Psychiatric (, anxiety/depression,) and Other (SIBO (Small intestinal Bacterial overgrowth), hiatal hernia, chronic thrombocytopenia,
lumbar stenosis, BPH, Diverticulitis, )
ED Past Surgical History: Other (thoracotomy, Right brow lift)
Social History
Tobacco: Former smoker
Alcohol: None
Drug: None
Personal:
Living: with family
Employment: Retired
Family History
Family History: Other (Father with aneurysm and CAD in mother with heart failure and cancer)
Review of Systems
Review of Systems
All Other Systems: ROS reviewed and negative except as documented in HPI and ROS
Constitutional: Reports no symptoms; Denies fever or chills
EENT: Reports no symptoms
Respiratory: Reports trouble breathing (with pain); Denies cough
Cardiac: Reports no symptoms; Denies chest pain
ABD/GI: Reports abdominal pain, nausea and diarrhea; Denies vomiting
: Reports no symptoms; Denies dysuria, frequency or urgency
Musculoskeletal: Reports no symptoms
Skin: Reports no symptoms
Neurological: Reports other (Lightheaded); Denies dizzy or headache
Psychiatric: Reports no symptoms
Phy Exam
General Physical Exam
General Presentation: no apparent distress
General age: appears stated age
General Skin: warm and dry
General Habitus: elderly
General Mental: alert
General Hydration: dry mucous membranes
ENT Exam
ENT Exam: TM's normal, pharynx normal and neck supple
Eye Exam
Eye Exam: EOMI
Cardiovascular Exam
Cardiovascular Exam: no edema, normal peripheral pulses and bradycardia
Pulmonary Exam
Pulmonary Exam: lungs clear, no respiratory distress, no rales, chest non tender, no crackles, no rhonchi, no wheezing and no cough
Gastrointestinal Exam
Gastrointestinal Exam: normal bowel sounds, soft, no organomegaly, no pulsatile mass, non distended and tender (Right and left sided tenderness with palpation)
Musculoskeletal Exam
Musculoskeletal Exam: full ROM and no edema
Skin Exam
Skin Exam: normal color, warm/dry, no rash and no petechia
Psychiatric Exam
Psychiatric Exam: normal mood/affect
Course
Orders/Labs/Results
Orders:
Orders
11/02/23 18:59
0.9% Sodium Chloride 1000 ml [Nss] 1,000 ml IV BOLUS
Ondansetron Injectable [Zofran] 4 mg IV NOW STA
11/02/23 19:04
Complete Blood Count/With Diff Urgent
Urinalysis Reflex To Culture Urgent
Date Specimen was Collected: 11/02/23
Time Specimen was Collected: 19:00
11/02/23 19:42
Comprehensive Metabolic Panel Urgent
11/02/23 20:44
Iohexol [Omnipaque] See Protocol PO NOW STA
11/02/23 20:45
CT Abd/pel (oral only)-DH Only Urgent
Comment:
Reason For Exam: generalized abd pain
Abnormal Lab Results
11/02/23
19:04
RBC 3.75 L 10^6/uL
(4.70-6.10)
Hct 36.5 L %
(39.0-52.0)
MCV 97.3 H fL
(80.0-94.0)
MCH 34.7 H pg
(27.0-31.0)
Plt Count 120 L 10^3/uL
(130-400)
MPV 10.9 H fL
(7.4-10.4)
Absolute Lymphs (auto) 1.1 L 10^3/uL
(1.2-3.4)
Absolute Monos (auto) 0.7 H 10^3/uL
(0.1-0.6)
Immature Gran % 0.8 H %
(0-0.5)
Monocytes % 13.8 H %
(1.7-9.3)
Urine Ketones Trace A
(Negative)
11/02/23 19:04
11/02/23 19:42
Anemic, Urine negative for infection.
Vital Signs
Initial and Last Documented VS:
Initial Vital Signs
Temp Pulse Resp BP Pulse Ox
98.0 F 52 16 147/68 99
11/02/23 17:23 11/02/23 17:23 11/02/23 17:23 11/02/23 17:23 11/02/23 17:23
Last Documented Vital Signs
Temp Pulse Resp BP Pulse Ox
98.0 F 59 18 132/72 98
11/02/23 17:23 11/02/23 22:00 11/02/23 22:00 11/02/23 22:00 11/02/23 22:00
MDM/Problems Addressed
Differential Diagnosis Includes:
Chronic SIBO, GERD
MDM/Problems Addressed:
This is a 83 year old male that comes in with c/o abd pain and nausea. States that he has lost 30 pounds in the past year and that he is not able to eat. States that he is nauseated and has abd pain.
Will check labs, CT scan. IV fluids and medicate with Antiemetic.
back into see patient. Due to the fact that patient was asked multiple times if he had a shellfish allergy he does not want IV contrast. States that he has anxiety and see's a Psychiatrist. States that he has had a CT before with IV contrast and
been fine but now his anxiety has started and he does not want IV. Patient is willing to drink for CT scan.
Back into see patient. Explained that the CT was negative for any acute process. There is some Constipation, a left inguinal hernia that is fat filled. Patient to follow up with the GI specialist. Return with any concerns.
Chronic conditions affecting care:
SIBO, GERD
Acute Exacerbation and/or Progression of Chronic Illness:
SIBO, GERD
*Radiology
Radiology exam reviewed: radiology read reviewed (CT night hawk-Focal wall thickening and narrowing of the mid transverse colon (). This is likely due to underdistension however consider follow-up with colon cancer screening. Moderate stool
burden suggesting Constipation. No bowel obstruction. Colonic diverticulosis without diverticulitis. ) and all reviewed NAD by ED Provider (CT cont- Normal appendix. No obstructive uropathy. Nonspecific bilateral perinephric fat stranding.
Unremarkable gallbladder and pancreas. Small left inguinal hernia containing fat. Unchanged dendriform pulmonary ossification at the lungs bases. )
*Pulse Oximetry
Patient hypoxic: no
*EKG
Interpreted by ED Provider?: NA
Rate: EKG- N/A
*Silviculture Teacher Interpretation
Rate: Silviculture Teacher- N/A
*Critical Care Note
Total Time (30-74mins, 75-104mins- exclusive of procedures): Not Applicable
ED Attending Note
-
Portions of this chart may have been created with voice recognition software.� Occasional wrong word or��sound alike� substitutions may have occurred due to the inherent limitations of voice recognition software.
Discharge Plan
Departure
Patient Disposition: Home (Routine Discharge)
Date of Disposition: 11/02/23
Time of Disposition: 23:44
Patient with high blood pressure during this ER visit?: Yes
Condition: Good
Covid-19: Not Applicable
Discharge Problem:
Abdominal pain
Instructions: Abdominal Pain, BLOOD PRESSURE
Prescriptions:
No Action
multivitamin with folic acid [Tab-A-Johanna] 1 TABLET tablet
1 tab PO DAILY
finasteride 5 MG tablet
5 mg PO QPM
albuterol sulfate 1 PUFF HFA aerosol inhaler
2 puff inhalation R Q4 PRN (Reason: sob/wheezing)
cholecalciferol (vitamin D3) 2,000 UNITS tablet
2,000 units PO DAILY
lorazepam 0.5 MG tablet
0.25 mg PO DAILY PRN (Reason: anxiety)
Patient Comments:
04/25/2022: last filled 12/04/21, 30 tabs for 30 days
Eliquis 5 MG tablet
5 mg PO BID Qty: 30 0RF
sennosides-docusate sodium 1 TABLET tablet
2 tab PO QPM
metoprolol succinate [Toprol XL] 25 MG tablet extended release 24 hr
12.5 mg PO DAILY
pravastatin 20 mg tablet
20 mg PO DAILY
duloxetine 60 mg capsule,delayed release(DR/EC)
60 mg PO DAILY
Motegrity 2 mg tablet
2 mg PO DAILY
aripiprazole [Abilify] 2 mg tablet
2 mg PO DAILY Qty: 30 0RF
cefixime 400 mg capsule
400 mg PO DAILY Qty: 4 0RF
lactulose 20 gram packet
20 g PO DAILY PRN (Reason: Constipation) 5 Days Qty: 5 0RF
pantoprazole [Protonix] 20 mg tablet,delayed release (DR/EC)
20 mg PO DAILY Qty: 7 0RF
simethicone 180 mg capsule
180 mg PO BID PRN (Reason: abdominal distention) Qty: 20 0RF
Referrals:
Dilshad Wilkerson DO [Family Provider] - Call in 1-3 days for appt
Activity Restrictions/Additional Instructions:
As discussed, your blood work shows you are a little anemic. Your CT is negative for acute process. It dose show constipation. Please try drinking Prune juice mixed with apple juice in equal amounts and heat and drink daily. Please try eating 6
small meals daily that are bland. You also have a left inguinal hernia that is fat filled. Follow up with the GI specialist for further evaluation. Continue with the medication that you have been given by the Primary care doctor. IF YOU HAVE ANY
OTHER CONCERNS PLEASE RETURN TO THE EMERGENCY ROOM.
Interventions
Interventions:
*Risk Screen - Suicide Last Done: 11/02/23 19:00
*General Assessment Last Done: 11/02/23 19:00
*Neglect/Abuse Screening Last Done: 11/02/23 19:00
ED- Fall Risk Assessment Last Done: 11/02/23 19:11
[id number] Assessment Last Done: 11/02/23 19:00
Discharge Date and Time
Print Language: TELUGU
[2023-11-02] MEDS: ZOFRAN 4 MG IV (19:03)
[2023-11-02] MEDS: NSS 1000 IV (19:03)
[2023-11-02 19:15] LABS: Urine Albumin Negative (Neg - Trace); Urine Bilirubin Negative (Negative); Urine Character Clear (Clear); Urine Color Yellow; Urine Glucose Negative (Negative); Urine Ketone Trace (Negative); Urine Leukocyte Negative (Negative); Urine Nitrite Negative (Negative); Urine Occult Blood Negative (Negative); Urine Specific Gravity 1.015 (<1.030); Urine Urobilinogen Negative (Neg - 1+)
[2023-11-02 19:17] LABS: % Basophils 0.4 % (0-2); % Eosinophils 0.8 % (0-6); % Immature Granulocytes 0.8 % (0-0.5); % Monocytes 13.8 % (1.7-9.3); % Neutrophils 62.2 % (42.2-75.2); Absolute Lymphocytes 1.1 10^3/uL (1.2-3.4); Absolute Monocytes 0.7 10^3/uL (0.1-0.6); Hematocrit 36.5 % (39.0-52.0); Mean Corp Hgb Conc. 35.6 g/dL (33.0-37.0); Mean Corpuscular Hgb 34.7 pg (27.0-31.0); Mean Corpuscular Volume 97.3 fL (80.0-94.0); Mean Platelet Volume 10.9 fL (7.4-10.4); Nucleated Red Blood Cells % 0 % (-); Platelet Count 120 10^3/uL (130-400); Red Blood Cell Count 3.75 10^6/uL (4.70-6.10); Red Cell Dist. Width 13.9 % (11.5-14.5); White Blood Cell Count 4.8 10^3/uL (4.8-10.8)
[2023-11-02 20:00] VITALS: BP 142/75
[2023-11-02 20:08] LABS: ALT (SGPT) 10 U/L (0-50); AST (SGOT) 21 U/L (17-59); Albumin 4.1 g/dl (3.5-5.0); Alkaline Phosphatase 56 U/L (38-126); Blood Urea Nitrogen 19 mg/dl (9-20); Calcium 9.3 mg/dl (8.4-10.2); Carbon Dioxide 24 mmol/L (22-30); Chloride 107 mmol/L (98-107); Glucose 91 mg/dl (70-99); Potassium 3.9 mmol/L (3.5-5.1); Sodium 137 mmol/L (135-145); Total Bilirubin 0.7 mg/dl (0.2-1.3); Total Protein 6.3 g/dl (6.3-8.2); eGFR > 60.00
[2023-11-02] MEDS: OMNIPAQUE 50 ML PO (20:53)
[2023-11-02 22:00] VITALS: BP 132/72
[2023-11-03] VITALS: BP 125/73
== END 2023-11-03 00:12 | disposition home or self-care (01) ==
LOC: EMR 17:18
PROVIDERS: Clinical Nurse Specialist Family Health; EMERGENCY PHYSICIAN Emergency Medicine; FAMILY PHYSICIAN Family Medicine
DX: R10.9 Unspecified abdominal pain (principal); R11.0 Nausea; R19.7 Diarrhea, unspecified; R06.02 Shortness of breath; R42 Dizziness and giddiness; K59.00 Constipation, unspecified; K63.8219 Small intestinal bacterial overgrowth, unspecified; D64.9 Anemia, unspecified; I48.91 Unspecified atrial fibrillation; J45.909 Unspecified asthma, uncomplicated; I10 Essential (primary) hypertension; E78.00 Pure hypercholesterolemia, unspecified; F32.A Depression, unspecified; K57.30 Diverticulosis of large intestine without perforation or abscess without bleeding; K40.90 Unilateral inguinal hernia, without obstruction or gangrene, not specified as recurrent; F41.9 Anxiety disorder, unspecified; K44.9 Diaphragmatic hernia without obstruction or gangrene; M48.061 Spinal stenosis, lumbar region without neurogenic claudication; N40.0 Benign prostatic hyperplasia without lower urinary tract symptoms; Z87.891 Personal history of nicotine dependence; Z85.828 Personal history of other malignant neoplasm of skin; Z79.01 Long term (current) use of anticoagulants; Z88.0 Allergy status to penicillin; Z88.2 Allergy status to sulfonamides; Z88.1 Allergy status to other antibiotic agents; Z91.030 Bee allergy status
CPT/HCPCS: 99284; 96374; 74176; 80053; 81003; 85025

== ENCOUNTER 2023-12-16 15:04 | Outpatient (RCR) | payer MEDICARE, OTHER, SELFPAY | END 2023-12-16 23:59 | disposition home or self-care (01) | LOC: ROT 15:04 | PROVIDERS: ATTENDING PHYSICIAN Nurse Practitioner Adult Health; FAMILY PHYSICIAN Family Medicine | DX: G62.9 Polyneuropathy, unspecified (principal); G31.84 Mild cognitive impairment of uncertain or unknown etiology; Z73.6 Limitation of activities due to disability | CPT/HCPCS: 97110; 97112; 97116; 97163; 97167; 97530; 97535 ==

== ENCOUNTER 2024-01-22 11:02 | Outpatient (RCR) | payer MEDICARE, OTHER, SELFPAY | END 2024-01-22 23:59 | disposition home or self-care (01) | LOC: ROT 11:02 | PROVIDERS: ATTENDING PHYSICIAN Nurse Practitioner Adult Health; FAMILY PHYSICIAN Family Medicine | DX: G62.9 Polyneuropathy, unspecified (principal); G31.84 Mild cognitive impairment of uncertain or unknown etiology; Z73.6 Limitation of activities due to disability | CPT/HCPCS: 97110; 97112; 97116; 97530; 97535 ==

== ENCOUNTER 2024-02-12 10:12 | Outpatient (RCR) | payer MEDICARE, OTHER, SELFPAY | END 2024-02-12 23:59 | disposition home or self-care (01) | LOC: ROT 10:12 | PROVIDERS: ATTENDING PHYSICIAN Nurse Practitioner Adult Health; FAMILY PHYSICIAN Family Medicine | DX: G62.9 Polyneuropathy, unspecified (principal); G31.84 Mild cognitive impairment of uncertain or unknown etiology; Z73.6 Limitation of activities due to disability | CPT/HCPCS: 97110; 97112; 97530; 97535 ==

== ENCOUNTER → 2024-03-13 12:26 | Outpatient (REF) | payer MEDICARE, OTHER, SELFPAY | LOC: WOUND 12:26 | PROVIDERS: ATTENDING PHYSICIAN Surgery; FAMILY PHYSICIAN Family Medicine | DX: L89.319 Pressure ulcer of right buttock, unspecified stage (principal); L89.329 Pressure ulcer of left buttock, unspecified stage; I48.0 Paroxysmal atrial fibrillation | CPT/HCPCS: 99214 ==

== ENCOUNTER 2024-03-19 19:46 | Emergency (ER) | payer MEDICARE, OTHER, SELFPAY ==
[2024-03-19 19:49] VITALS: BP 165/80
[2024-03-19 20:25] LABS: % Basophils 0.2 % (0-2); % Eosinophils 0.5 % (0-6); % Immature Granulocytes 0.7 % (0-0.5); % Lymphocytes 25.3 % (20.5-51.1); % Monocytes 11.5 % (1.7-9.3); % Neutrophils 61.8 % (42.2-75.2); Absolute Lymphocytes 1.1 10^3/uL (1.2-3.4); Absolute Monocytes 0.5 10^3/uL (0.1-0.6); Absolute Neutrophils 2.7 10^3/uL (1.4-6.5); Hemoglobin 13.1 g/dL (13.0-18.0); Mean Corp Hgb Conc. 34.5 g/dL (33.0-37.0); Mean Corpuscular Volume 101.6 fL (80.0-94.0); Mean Platelet Volume 10.9 fL (7.4-10.4); Nucleated Red Blood Cells % 0 % (-); Platelet Count 139 10^3/uL (130-400); Red Blood Cell Count 3.74 10^6/uL (4.70-6.10); Red Cell Dist. Width 13.3 % (11.5-14.5); White Blood Cell Count 4.4 10^3/uL (4.8-10.8)
[2024-03-19 20:27] LABS: COVID-19 Antigen Negative (Negative)
[2024-03-19 20:36] LABS: ALT (SGPT) 11 U/L (0-50); AST (SGOT) 21 U/L (17-59); Albumin 4.4 g/dl (3.5-5.0); Alkaline Phosphatase 49 U/L (38-126); Blood Urea Nitrogen 18 mg/dl (9-20); Calcium 9.4 mg/dl (8.4-10.2); Carbon Dioxide 30 mmol/L (22-30); Chloride 99 mmol/L (98-107); Glucose 115 mg/dl (70-99); Potassium 3.6 mmol/L (3.5-5.1); Sodium 138 mmol/L (135-145); Total Bilirubin 0.4 mg/dl (0.2-1.3); Total Protein 6.5 g/dl (6.3-8.2); Troponin I < 0.012 ng/ml; eGFR > 60.00
[2024-03-19 23:28] VITALS: BP 157/80
[2024-03-19 23:31] VITALS: BMI 26.9
[2024-03-20] VITALS: BP 138/71
[2024-03-20 01:00] VITALS: BP 143/79
--- NOTE | 2024-03-20 01:42 | ED.GENMED ---
History of Present Illness
General
Chief Complaint: Cardiac Symptoms
Source: patient
Time Seen by Provider: 03/20/24 01:30
History of Present Illness
History of Present Illness:
83-year-old male presents to the emergency room for evaluation. Patient took guaifenesin this afternoon to treat chest congestion. After taking guaifenesin he began to feel flushed and as if he might have difficulty taking a deep breath. He
called his carton folder who recommended he come to the emergency room to be evaluated. Patient feels somewhat better now. He did take half a tablet of Benadryl after the symptoms began. No fever. Patient does have a history of COPD. He did
take a breathing treatment at home as well.
Past History
Past History
ED Past Medical History: Arrthythmia (Atrial fib), Asthma, Cancer (Skin CA), COPD, HTN, Hypercholesterolemia, Psychiatric (, anxiety/depression,) and Other (SIBO (Small intestinal Bacterial overgrowth), hiatal hernia, chronic thrombocytopenia,
lumbar stenosis, BPH, Diverticulitis, )
ED Past Surgical History: Other (thoracotomy, Right brow lift)
Social History
Tobacco: Former smoker
Alcohol: None
Drug: None
Personal:
Living: with family
Employment: Retired
Family History
Family History: Other (Father with aneurysm and CAD in mother with heart failure and cancer)
Phy Exam
Physical Exam
Physical Exam:
General: Awake, Alert, Oriented X3. No acute distress.
Vitals: unremarkable
Head: Atraumatic
Eyes: Pupils equal, EOMI
Throat: Airway intact, no exudates
Neck: Trachea midline
Lungs: Clear and equal b/l
Heart: Regular rate, no murmurs
Abd: Soft, Nontender, No pulsatile mass
Neuro: Nonfocal
Skin: Warm, dry, no rash
Extremities: pulses equal b/l, no edema
Course
Orders/Labs/Results
Orders:
Orders
03/19/24 19:52
Electrocardiogram (*1) Urgent
Reason for Study: Shortness of Breath
CR Chest - 2 Views Urgent
Comment:
Reason For Exam: SOB
03/19/24 19:53
EKG- Treatment ONCE
03/19/24 20:05
COVID-19 Antigen Urgent
Source: Nasal Swab
Complete Blood Count/With Diff Urgent
Comprehensive Metabolic Panel Urgent
PTT Urgent
Troponin I Urgent
INF RAPID [Influenza A+B Rapid Molecular] Urgent
PRISCILLA Source: Nasal Swab
Specimen Description:
03/20/24 01:48
Doxycycline [Vibramycin] 100 mg PO NOW STA
Abnormal Lab Results
03/19/24
20:05
WBC 4.4 L 10^3/uL
(4.8-10.8)
RBC 3.74 L 10^6/uL
(4.70-6.10)
Hct 38.0 L %
(39.0-52.0)
MCV 101.6 H fL
(80.0-94.0)
MCH 35.0 H pg
(27.0-31.0)
MPV 10.9 H fL
(7.4-10.4)
Absolute Lymphs (auto) 1.1 L 10^3/uL
(1.2-3.4)
Immature Gran % 0.7 H %
(0-0.5)
Monocytes % 11.5 H %
(1.7-9.3)
Glucose 115 H mg/dl
(70-99)
03/19/24 20:05
03/19/24 20:05
Vital Signs
Initial and Last Documented VS:
Initial Vital Signs
Temp Pulse Resp BP Pulse Ox
97.4 F 68 20 165/80 99
03/19/24 19:49 03/19/24 19:49 03/19/24 19:49 03/19/24 19:49 03/19/24 19:49
Last Documented Vital Signs
Temp Pulse Resp BP Pulse Ox
98.4 F 71 11 143/79 99
03/19/24 23:33 03/20/24 01:45 03/20/24 01:45 03/20/24 01:00 03/20/24 01:45
MDM/Problems Addressed
Differential Diagnosis Includes:
Pneumonia, bronchitis, pneumothorax, COPD exacerbation
MDM/Problems Addressed:
Pulse ox normal. Good aeration without wheezing on lung exam. Chest x-ray shows no infiltrate though there are chronic changes which appear stable. White count is mildly low at 4.4. This is consistent with previous measurements. Troponins
normal. EKG shows no acute ischemic changes. Patient stable for discharge home. Will cover him for potential acute bacterial bronchitis with doxycycline given his history of COPD.
*Radiology
Radiology exam reviewed: preliminary read by ED provider (No acute disease on my review) and radiology read reviewed
*Pulse Oximetry
Patient hypoxic: no
*EKG
Interpretation: abnormal
Heart Rate: 76
Rate: normal
Rhythm: sinus
[place]: normal axis
Interval: first degree heart block
Ischemia: no ischemia
*Powder Hand Interpretation
Rate: normal
Interpretation: normal
Rhythm: sinus
*Critical Care Note
Total Time (30-74mins, 75-104mins- exclusive of procedures): Not Applicable
ED Attending Note
-
Portions of this chart may have been created with voice recognition software.� Occasional wrong word or��sound alike� substitutions may have occurred due to the inherent limitations of voice recognition software.
Discharge Plan
Departure
Patient Disposition: Home (Routine Discharge)
Date of Disposition: 03/20/24
Time of Disposition: 01:42
Patient with high blood pressure during this ER visit?: No
Condition: Good
Discharge Problem:
Acute bronchitis
Instructions: Bronchitis in adults - ED discharge instructions
Prescriptions:
New
doxycycline hyclate 100 mg capsule
100 mg PO BID 7 Days Qty: 14 0RF
No Action
multivitamin with folic acid [Tab-A-Johanna] 1 TABLET tablet
1 tab PO DAILY
finasteride 5 MG tablet
5 mg PO QPM
albuterol sulfate 1 PUFF HFA aerosol inhaler
2 puff inhalation R Q4 PRN (Reason: sob/wheezing)
cholecalciferol (vitamin D3) 2,000 UNITS tablet
2,000 units PO DAILY
lorazepam 0.5 MG tablet
0.25 mg PO DAILY PRN (Reason: anxiety)
Patient Comments:
04/25/2022: last filled 12/04/21, 30 tabs for 30 days
Eliquis 5 MG tablet
5 mg PO BID Qty: 30 0RF
sennosides-docusate sodium 1 TABLET tablet
2 tab PO QPM
metoprolol succinate [Toprol XL] 25 MG tablet extended release 24 hr
12.5 mg PO DAILY
pravastatin 20 mg tablet
20 mg PO DAILY
duloxetine 60 mg capsule,delayed release(DR/EC)
60 mg PO DAILY
Motegrity 2 mg tablet
2 mg PO DAILY
aripiprazole [Abilify] 2 mg tablet
2 mg PO DAILY Qty: 30 0RF
cefixime 400 mg capsule
400 mg PO DAILY Qty: 4 0RF
lactulose 20 gram packet
20 g PO DAILY PRN (Reason: Constipation) 5 Days Qty: 5 0RF
pantoprazole [Protonix] 20 mg tablet,delayed release (DR/EC)
20 mg PO DAILY Qty: 7 0RF
simethicone 180 mg capsule
180 mg PO BID PRN (Reason: abdominal distention) Qty: 20 0RF
Referrals:
Dilshad Wilkerson, DO [Family Provider] -
Interventions
Interventions:
*Risk Screen - Suicide Last Done: 03/19/24 23:25
*General Assessment Last Done: 03/19/24 19:49
*Neglect/Abuse Screening Last Done: 03/19/24 23:25
ED- Fall Risk Assessment Last Done: 03/20/24 01:50
*ED COVID-19 Vaccine History Last Done: 03/20/24 01:45
*Nursing Disposition Last Done: 03/20/24 01:50
ED- Cardiac Assessment Last Done: 03/19/24 23:25
ED- Pulmonary Assessment Last Done: 03/19/24 23:25
Discharge Date and Time
Discharge Date/Time: 03/20/24 02:05
Print Language: ITALIAN
[2024-03-20] MEDS: VIBRAMYCIN 100 MG PO (01:55)
== END 2024-03-20 02:05 | disposition home or self-care (01) ==
LOC: EMR 19:46
PROVIDERS: Emergency Medicine; EMERGENCY PHYSICIAN Emergency Medicine; FAMILY PHYSICIAN Family Medicine
DX: J20.9 Acute bronchitis, unspecified (principal); J44.0 Chronic obstructive pulmonary disease with (acute) lower respiratory infection; E78.00 Pure hypercholesterolemia, unspecified; I10 Essential (primary) hypertension; Z87.891 Personal history of nicotine dependence; Z85.828 Personal history of other malignant neoplasm of skin
CPT/HCPCS: 99285; 71046; 80053; 84484; 85025; 85730; 87502; 87811; 93005

== ENCOUNTER → 2024-04-02 10:36 | Outpatient (REF) | payer MEDICARE, OTHER, SELFPAY | LOC: WOUND 10:36 | PROVIDERS: ATTENDING PHYSICIAN Surgery; FAMILY PHYSICIAN Family Medicine | DX: L89.319 Pressure ulcer of right buttock, unspecified stage (principal); L89.329 Pressure ulcer of left buttock, unspecified stage; I48.0 Paroxysmal atrial fibrillation | CPT/HCPCS: 99213 ==

== ENCOUNTER → 2024-04-09 07:48 | Outpatient (REF) | payer MEDICARE, OTHER, SELFPAY | LOC: DHCBC/DCA 07:48 | PROVIDERS: ATTENDING PHYSICIAN Internal Medicine Cardiovascular Disease; FAMILY PHYSICIAN Family Medicine | DX: I10 Essential (primary) hypertension (principal); R00.1 Bradycardia, unspecified; R07.9 Chest pain, unspecified | CPT/HCPCS: 78452; 93017; A9500; J2785 ==

== ENCOUNTER 2024-04-28 08:21 | Outpatient (RCR) | payer MEDICARE, OTHER, SELFPAY | END 2024-04-28 23:59 | disposition home or self-care (01) | LOC: RPT 08:21 | PROVIDERS: ATTENDING PHYSICIAN Internal Medicine; FAMILY PHYSICIAN Family Medicine | DX: K59.09 Other constipation (principal); R15.9 Full incontinence of feces; N39.3 Stress incontinence (female) (male); Z73.6 Limitation of activities due to disability | CPT/HCPCS: 97163; 97530 ==

== ENCOUNTER 2024-06-17 09:57 | Outpatient (RCR) | payer MEDICARE, OTHER, SELFPAY | END 2024-06-17 23:59 | disposition home or self-care (01) | LOC: RPT 09:57 | PROVIDERS: ATTENDING PHYSICIAN Internal Medicine; FAMILY PHYSICIAN Family Medicine | DX: K59.09 Other constipation (principal); R15.9 Full incontinence of feces; N39.3 Stress incontinence (female) (male); Z73.6 Limitation of activities due to disability | CPT/HCPCS: 97014; 97112; 97140; 97530 ==

== ENCOUNTER 2024-06-28 20:48 | Inpatient (IN) | payer MEDICARE, OTHER, SELFPAY ==
[2024-06-28 15:14] VITALS: BP 130/81
[2024-06-28 17:01] VITALS: BP 123/80
--- NOTE | 2024-06-28 17:39 | ED.GENMED ---
History of Present Illness
General
Chief Complaint: Fainting/Passed Out
Source: patient and spouse
Exam Limitations: none
Time Seen by Provider: 06/28/24 17:38
History of Present Illness
History of Present Illness:
Patient had a syncopal episode while going up the stairs a few hours ago. Started having chest pressure and shortness of breath going up the stairs. Hit his head. Brief LOC. Abrasion to the right hand. Has been having ongoing intermittent chest
tightness and shortness of breath with exertion. Cardiology is aware. He had an unremarkable chemical stress test done however there was discussions of cardiac cath with ongoing symptoms.
Past History
Past History
ED Past Medical History: Arrthythmia (Atrial fib), Asthma, Cancer (Skin CA), COPD, HTN, Hypercholesterolemia, Psychiatric (, anxiety/depression,) and Other (SIBO (Small intestinal Bacterial overgrowth), hiatal hernia, chronic thrombocytopenia,
lumbar stenosis, BPH, Diverticulitis, )
ED Past Surgical History: Other (thoracotomy, Right brow lift)
Social History
Tobacco: Former smoker
Alcohol: None
Drug: None
Personal:
Living: with family
Employment: Retired
Family History
Family History: Other (Father with aneurysm and CAD in mother with heart failure and cancer)
Review of Systems
Review of Systems
All Other Systems: Not applicable
Constitutional: Denies fever
Cardiac: Denies diaphoresis or palpitations
Phy Exam
Physical Exam
Physical Exam:
GENERAL: Alert and oriented in no apparent distress. No obvious head trauma. Although mild tenderness to the left temporal area
EYE: Orbits normal.
NECK: Supple
CARDIAC: Regular rate and rhythm without any obvious murmurs.
LUNGS: Clear breath sounds,normal
ABDOMEN: Soft, without focal tenderness or distention
NEUROLOGICAL: Alert and oriented , grossly non-focal
SKIN: Warm and dry, abrasion near the right thumb
MUSCULOSKELETAL: No edema,no deformity.Good color
PSYCH: Normal and appropriate interaction.
Course
Orders/Labs/Results
Orders:
Orders
06/28/24 Breakfast
Regular
At Your Request: Full Participation
Does patient need a safe tray?: No
06/28/24 14:52
ECG [Electrocardiogram (*1)] Urgent
Reason for Study: Syncope
EKG- Treatment ONCE
06/28/24 15:[address] [CT Head W/o Iv Contrast] Urgent
Comment:
Reason For Exam: fall hit head
06/28/24 17:55
CXR Port [CR Chest Portable - 1 View] Urgent
Comment:
Reason For Exam: Intermittent chest tightness/syncope
Reason Study Needs to be Portable: Patient Unstable
06/28/24 18:03
Complete Blood Count/With Diff Urgent
Comprehensive Metabolic Panel Urgent
Troponin I Urgent
06/28/24 19:44
Admit/Transfer Patient As Directed
Co-Sign Provider:
Level of Care: Inpatient admission
Assign to:: IVU
Physician / Group: Bryan
Diagnosis: Angina, Syncope
Reason for Hospitalization: Angina, Syncope
Expected length of stay greater than two midnights?: Yes
ELOS- Estimated Length of Stay in days: 2
I certify the patient meets the requirements for IP care: Yes
06/28/24 19:45
PRN Pain Medication Management As Directed
May give lesser potent ordered pain med per pt: Yes
preference::
Protocol:: Medication orders for pain may be administered in a
manner that supports deferring to patient preference
when the pt is:
- Requesting an ordered lesser potent pain medication.
Least to most potent pain medications are defined
as: acetaminophen < NSAID < tramadol < opioids
(morphine, oxycodone, hydromorphone).
- Requesting a lesser dose of the same medication IF
ORDERED.
- Requesting a less intrusive route of administration
if both routes are prescribed by the provider (PO <
IV).
06/28/24 19:46
Code Status As Directed
Resuscitation Status: Full Code
06/28/24 20:56
Acetaminophen [Tylenol] 650 mg PO Q4HPRN PRN
Albuterol Nebs [Ventolin Nebules] 2.5 mg INH R Q4HPRN PRN
Apixaban [Eliquis] 5 mg PO BID
Melatonin 3 mg PO HS PRN
Nitroglycerin Sublingual [Nitrostat (Sublingual)] 0.4 mg SL [id number] PRN
06/28/24 20:56
Echo 2D MMode Doppler [Echo 2D MMode Color/Doppler] Routine
Reason for Study: Syncope
Activity As Directed
Activity Level: Ambulate
With Assistance
Bladder Scan As Directed
Follow Bladder Retention/Intermittent Cath Algorithm?: Yes
PRN if no void in __ hours: 6
Frequency: Per Retention Algorithm
If Bladder Scan Result >: 400
then:: Straight cath
EKG with chest pain [ECG as needed] As Directed
ECG as needed for:: Chest Pain
I/O [Intake/ Output] As Directed
Frequency: Per unit guidelines
Straight Cath As Directed
Frequency: Per Retention Algorithm
Additional Instructions: straight cath as needed per acute urinary retention algorithm for 24 hrs
Additional Instructions: for bladder scan greater than 400 mL
Vital Signs As Directed
Frequency: Per unit guidelines
Weight As Directed
Frequency: Daily
Oxygen Therapy [O2 Therapy] [RESP] Routine
Titrate/Wean O2 to maintain O2 sat greater than (%): 94
06/28/24 21:37
Glycohemoglobin (HgbA1c) Routine
Troponin I Q6H
06/28/24 22:00
Lorazepam [Ativan] 0.5 mg PO HS
06/29/24 02:56
Troponin I Q6H
06/29/24 06:00
EKG [Electrocardiogram (*1)] IN AM
Reason for Study: Chest Pain
NPO
Allow oral meds: Yes
Allow clear liquids: Sips of Clears
NPO for procedure after (time): Midnight
Basic Metabolic Panel IN AM
Cardiovascular Evaluation IN AM
Complete Blood Count/No Diff IN AM
06/29/24 08:00
Aspirin Chewable [Low Strength Aspirin] 81 mg PO DAILY
Cholecalciferol (Vitamin D3) [VITAMIN D3 (cholecalciferol)] 50 mcg PO DAILY
Duloxetine Delayed Release [Cymbalta Delayed Release] 40 mg PO DAILY
Linaclotide [Linzess] 145 mcg PO DAILY
Multivitamin [Theragran] 1 tablet PO DAILY
Pantoprazole [Protonix] 40 mg PO DAILY
Tiotropium [place] 2.5 Mcg [Spiriva Respimat 2.5 Mcg] 2 puff INH R DAILY
06/29/24 08:56
Troponin I Q6H
06/29/24 18:00
Finasteride [Proscar] 5 mg PO QPM
Abnormal Lab Results
06/28/24
18:03
WBC 4.0 L 10^3/uL
(4.8-10.8)
RBC 3.94 L 10^6/uL
(4.70-6.10)
MCV 99.7 H fL
(80.0-94.0)
MCH 33.8 H pg
(27.0-31.0)
MPV 10.7 H fL
(7.4-10.4)
Absolute Lymphs (auto) 1.0 L 10^3/uL
(1.2-3.4)
Immature Gran % 0.7 H %
(0-0.5)
Monocytes % 13.9 H %
(1.7-9.3)
Glucose 109 H mg/dl
(70-99)
06/28/24 18:03
06/28/24 18:03
Vital Signs
Initial and Last Documented VS:
Initial Vital Signs
Temp Pulse Resp BP Pulse Ox
98.4 F 93 18 130/81 99
06/28/24 15:14 06/28/24 15:14 06/28/24 15:14 06/28/24 15:14 06/28/24 15:14
Last Documented Vital Signs
Temp Pulse Resp BP Pulse Ox
98.0 F 84 20 143/84 97
06/28/24 23:10 06/28/24 21:00 06/28/24 23:10 06/28/24 20:59 06/28/24 23:10
MDM/Problems Addressed
Differential Diagnosis Includes:
Patient describing exertional chest pressure shortness of breath. Highly suspect a cardiac etiology. However when combined with a syncopal episode warrants inpatient management.
*Radiology
Radiology exam reviewed: radiology read reviewed (Negative head CT)
*Pulse Oximetry
Patient hypoxic: no
*EKG
Interpreted by ED Provider?: Yes
Comparison EKG: changes noted
Heart Rate: 82
Rate: normal
Rhythm: sinus
[place]: normal axis
Interval: normal interval
QRS Pattern: normal QRS
Ischemia: other (Nonspecific inferior changes. Slight poor R wave progression)
*Critical Care Note
Total Time (30-74mins, 75-104mins- exclusive of procedures): Not Applicable
Data Reviewed
Review of Other/Old Records Reveals: Labs, Records and Testing
ED Attending Note
-
Portions of this chart may have been created with voice recognition software.� Occasional wrong word or��sound alike� substitutions may have occurred due to the inherent limitations of voice recognition software.
Discharge Plan
Departure
Patient Disposition: Admit
Date of Disposition: 06/28/24
Time of Disposition: 19:07
Presentation/result/management discussed w/ accepting MD/DO: Hospitalist
Discharge Problem:
Unstable angina, Syncope, Minor head injury, Abrasion of finger of right hand
Interventions
Interventions:
*Risk Screen - Suicide Last Done: 06/28/24 21:07
*General Assessment Last Done: 06/28/24 18:07
*Neglect/Abuse Screening Last Done: 06/28/24 18:07
*ED- Fall Risk Assessment Last Done: 06/28/24 18:07
*ED COVID-19 Vaccine History Last Done: 06/28/24 20:56
*Nursing Disposition Last Done: 06/28/24 21:07
ED- Cardiac Assessment Last Done: 06/28/24 18:07
ED- Neurological Assessment Last Done: 06/28/24 18:07
Discharge Date and Time
Discharge Date/Time: 06/28/24 21:07
--- NOTE | 2024-06-28 17:50 | EDRN ---
Dr. Spencer in room w/ pt.
--- NOTE | 2024-06-28 17:58 | EDRN ---
Unable to draw blood off of IV. At spouse's request Patricia NOLAN attempting blood draw for labs in room at this time.
--- NOTE | 2024-06-28 18:04 | EDRN ---
Portable CR done at this time at stretcher side.
[2024-06-28 18:06] VITALS: BMI 26.7
[2024-06-28 18:09] VITALS: BP 127/81
[2024-06-28 18:13] LABS: % Basophils 0.5 % (0-2); % Eosinophils 0.5 % (0-6); % Immature Granulocytes 0.7 % (0-0.5); % Lymphocytes 23.9 % (20.5-51.1); % Monocytes 13.9 % (1.7-9.3); % Neutrophils 60.5 % (42.2-75.2); Absolute Monocytes 0.6 10^3/uL (0.1-0.6); Absolute Neutrophils 2.4 10^3/uL (1.4-6.5); Hematocrit 39.3 % (39.0-52.0); Hemoglobin 13.3 g/dL (13.0-18.0); Mean Corp Hgb Conc. 33.8 g/dL (33.0-37.0); Mean Corpuscular Hgb 33.8 pg (27.0-31.0); Mean Corpuscular Volume 99.7 fL (80.0-94.0); Mean Platelet Volume 10.7 fL (7.4-10.4); Nucleated Red Blood Cells % 0 % (-); Platelet Count 142 10^3/uL (130-400); Red Blood Cell Count 3.94 10^6/uL (4.70-6.10)
[2024-06-28 18:24] LABS: ALT (SGPT) 11 U/L (0-50); AST (SGOT) 19 U/L (17-59); Albumin 4.1 g/dl (3.5-5.0); Alkaline Phosphatase 60 U/L (38-126); Blood Urea Nitrogen 15 mg/dl (9-20); Calcium 9.7 mg/dl (8.4-10.2); Carbon Dioxide 30 mmol/L (22-30); Chloride 105 mmol/L (98-107); Estimated Creatinine Clearance 73 ml/min; Glucose 109 mg/dl (70-99); Potassium 3.9 mmol/L (3.5-5.1); Sodium 140 mmol/L (135-145); Total Bilirubin 0.5 mg/dl (0.2-1.3); Total Protein 6.3 g/dl (6.3-8.2); eGFR > 60.00
[2024-06-28 18:34] LABS: Troponin I 0.015 ng/ml
[2024-06-28 19:00] VITALS: BP 121/80
--- NOTE | 2024-06-28 19:47 | HPS.HSE ---
Family Physician
-
Family Physician: Dilshad Wilkerson
Chief Complaint
-
Chest Pain, Syncope
History of Present Illness
Patient is an 83y M with PMH significant for A-Fib, GERD and COPD who presents to ED complaining of chest pain, dyspnea and syncope. Patient states that he has been having episodes of chest tightness and SOB for the past 2-3 months. Symptoms
usually occur in the AM with activity / exertion and resolve after about 20-30 seconds. He will have 1-3 episodes per day.
Today, patient was walking up the stairs when he felt the chest tightness and SOB. He states that he started to feel lightheaded. The next thing he recalls is waking in the hu closet. His had been walking up behind him and saw him collapse
at the top of the stairs and fall into the closet. He briefly lost consciousness.
Patient struck his head on a clothes hamper and suffered a shallow laceration to the R hand probably on the closet door.
Patient states that he has had not had prior episodes of syncope in the past.
He has been evaluated for his symptoms over the past few months. He had an unremarkable stress test in March.
He was seen by Pulmonary and started on a new inhaler (he cannot recall the name) - but this made his chest tightness worse.
At the time of my examination, patient complains of mild chest heaviness (2/10). No dyspnea, palpitations, nausea, etc at present.
Medical History
Past Medical History
Past Medical History: Reports Other
Additional Past Medical History:
Paroxysmal Atrial Fibrillation
Hypertension
COPD
Anxiety/Depression
BPH
IBS / SIBO
Histoplasmosis
Peripheral Neuropathy
Past Surgical History: Reports Other
Additional Past Surgical History:
LLL Lobectomy for Histoplasmosis
Cardiac Cath (no angio / stent)
Social History
Tobacco: Former Smoker (Cigars. Quit in 1982)
Alcohol: None
Personal:
Living: With Family
Family History
Family History: Not pertinent
Allergies / Home Medications
Allergies reflects when Allergies were last updated in [facility].
Home Medications with original date entered in [facility]
Allergy/Medication List:
Allergies
Allergy/AdvReac Type Severity Reaction Status Date / Time
Penicillins Allergy redness,difficulty Verified 06/28/24 15:14
breathing,
swelling
Shellfish *RETIRED-12/11/11 Allergy redness,difficulty Verified 06/28/24 15:14
[Shellfish] breathing,swelling
sulfamethoxazole Allergy Shortness Verified 06/28/24 15:14
[From Bactrim] of Breath
trimethoprim [From Bactrim] Allergy Shortness Verified 06/28/24 15:14
of Breath
bees Allergy redness,difficulty Uncoded 06/28/24 15:14
breathing,swelling
Home Medications
multivitamin with folic acid 400 mcg tablet (Tab-A-Johanna) 1 tab PO DAILY Supplement 07/13/10
finasteride 5 mg tablet 5 mg PO QPM Urinary issue 10/17/11
albuterol sulfate 90 mcg/actuation aerosol inhaler 2 puff inhalation R Q4 PRN sob/wheezing 12/30/18
cholecalciferol (vitamin D3) 50 mcg (2,000 unit) tablet 2,000 units PO DAILY Supplement 11/01/20
lorazepam 0.5 mg tablet 0.5 mg PO HS 11/01/20
apixaban 5 mg tablet (Eliquis) 5 mg PO BID #30 tabs 02/09/21
duloxetine 40 mg capsule,delayed release 40 mg PO DAILY 06/28/24
linaclotide 145 mcg capsule (Linzess) 145 mcg PO DAILY 06/28/24
melatonin 3 mg tablet 3 mg PO HS PRN insomnia 06/28/24
omeprazole 40 mg capsule,delayed release 40 mg PO DAILY 06/28/24
tiotropium bromide 1.25 mcg/actuation mist for inhalation (Spiriva Respimat) 2 puff inhalation DAILY 06/28/24
Review of Systems
-
History Source: Patient
A 12 point ROS was completed and negative except as noted: Yes
Constitutional: Denies Fever or Chills
Respiratory: Reports Trouble Breathing; Denies Cough
Cardiac: Reports Chest Pain and Syncope; Denies Diaphoresis or Palpitations
Abdomen/GI: Denies Abdominal Pain, Nausea, Vomiting or Diarrhea
: Denies Dysuria, Frequency or Flank Pain
Musculoskeletal: Denies Joint Pain or Edema
Neurological: Denies Dizzy or Headache
Psych: Denies Depression or Anxiety
Physical Exam
Vital Signs
Vital Signs
Temp Pulse Resp BP Pulse Ox
98.4 F 74 9 121/80 99
06/28/24 15:14 06/28/24 19:00 06/28/24 19:00 06/28/24 19:00 06/28/24 19:00
Physical Exam
General: Other (83y M in no acute distress.)
HEENT: Moist mucous membranes and PERRLA
Respiratory: Clear; No Wheezes, Rales or Rhonchi
Cardiac: S1/S2 and Regular Rhythm; No Murmur
GI: Soft, Non Tender, Non Distended and Normal Bowel Sounds
Musculoskeletal: No Clubbing, No Cyanosis and No Edema
Skin: Other (Small laceration at the base of the R thumb.)
Neuro: AO x 3
Laboratory Results
-
06/28/24 18:03
06/28/24 18:03
Laboratory Results
Total Bilirubin 0.5 mg/dl (0.2-1.3) 06/28/24 18:03
AST 19 U/L (17-59) 06/28/24 18:03
ALT 11 U/L (0-50) 06/28/24 18:03
Alkaline Phosphatase 60 U/L (38-126) 06/28/24 18:03
Troponin I 0.015 ng/ml 06/28/24 18:03
Impression/Plan
-
A/P: Patient is an 83y M with PMH significant for hypertension, A-Fib and COPD who presents to ED complaining of 2-3 months of exertional dyspnea and chest pain and now syncopal event this evening.
Exertional Chest Pain / Dyspnea
Syncope
- Admit for further evaluation and treatment.
- EKG is unremarkable. Initial troponin is non-negative.
- Concerning symptoms for worsening angina - despite unremarkable stress test March 2024.
- Continue Eliquis. Patient not on statin, beta-tim, etc.
- Monitor on tele for arrhythmia.
- Follow troponin to peak.
- Monitor for any new / worsening / recurrent symptoms.
- Check Echo.
- Cardio evaluation for additional recommendations - possible ischemic evaluation.
Paroxysmal Atrial Fibrillation
- In sinus rhythm at present.
- Not on any rate control medications.
- Continue Eliquis for stroke risk reduction.
COPD without Acute Exacerbation
- Remote history of cigar smoking. No prior cigarette smoking.
- Continue Spiriva and albuterol PRN.
Anxiety / Depression / Insomnia
- Stable. Continue current med regimen including nightly Ativan.
DVT Prophylaxis: On Eliquis
Code Status: Full
[2024-06-28 20:01] VITALS: BP 152/85
[2024-06-28 20:55] VITALS: BMI 26.0
[2024-06-28 20:59] VITALS: BP 143/84
[2024-06-28 21:10] VITALS: BMI 26.0
[2024-06-28] MEDS: ELIQUIS 5 MG PO (21:39)
[2024-06-28] MEDS: ATIVAN 0.5 MG PO (21:39)
[2024-06-28] MEDS: MELATONIN 3 MG PO (21:39)
--- NOTE | 2024-06-28 21:55 | PTCARENOTE ---
Received patient from ED. SR with a first degree HB on the monitor, HR in the 70s. VSS on room air. Alert and oriented. Laceration on right hand noted from patients fall early today. Pt requested prn melatonin. No chest pain at this time. Oriented
pt to room, pt verbalizes understanding. Call bob within reach.
[2024-06-28 22:08] LABS: Troponin I < 0.012 ng/ml
[2024-06-29] VITALS (11 sets, daily range): BP systolic 104–142; BP diastolic 61–80; PULSE 74–91; BMI 26.0
[2024-06-29 04:08] LABS: Hematocrit 37.1 % (39.0-52.0); Hemoglobin 12.8 g/dL (13.0-18.0); Mean Corp Hgb Conc. 34.5 g/dL (33.0-37.0); Mean Corpuscular Hgb 34.6 pg (27.0-31.0); Mean Corpuscular Volume 100.3 fL (80.0-94.0); Mean Platelet Volume 10.6 fL (7.4-10.4); Platelet Count 130 10^3/uL (130-400); Red Cell Dist. Width 12.7 % (11.5-14.5); White Blood Cell Count 4.2 10^3/uL (4.8-10.8)
[2024-06-29 04:28] LABS: Blood Urea Nitrogen 12 mg/dl (9-20); Calcium 9.4 mg/dl (8.4-10.2); Carbon Dioxide 29 mmol/L (22-30); Chloride 108 mmol/L (98-107); Estimated Creatinine Clearance 82 ml/min; Glucose 103 mg/dl (70-99); HDL Cholesterol 49 mg/dl; LDL Cholesterol, Calculated 109 mg/dl; Potassium 3.7 mmol/L (3.5-5.1); Sodium 140 mmol/L (135-145); Total Cholesterol 193 mg/dl (50-199); Triglyceride 178 mg/dl (10-149); Very Low Density Lipoprotein 35 mg/dl (0-30); eGFR > 60.00
[2024-06-29 04:38] LABS: Troponin I < 0.012 ng/ml
--- NOTE | 2024-06-29 07:41 | CON.CAR ---
Addendum entered and electronically signed by Kaykay Persaud DO 06/29/24 10:51:
I saw and examined the patient.
The Air Cargo Agent's note was reviewed and I agree with the note.
Comment: Patient was seen and examined with his at bedside. 83-year-old youthful patient of Dr. Kamara with recurrent episodes of chest pressure, dizziness status post a syncopal episode at home. Patient has been evaluated for the symptoms
of the last few months however they have escalated now occurring multiple times a day. He reports chest pressure/tightness in the morning while making coffee associated with lightheadedness/dizziness requiring him to sit down with usual resolution
of symptoms. He also has the symptoms walking up stairs in his home and carrying in groceries. Symptoms are now occurring multiple times a day. Outpatient testing including environmental monitoring specialist has been unrevealing and stress test in March did not
show scan ischemia or scar. He denies abdominal pain/cramping. He denies shortness of breath or cough. Patient came to ER yesterday after an episode of chest pressure and later syncope at home, cardiology has been consulted.
General: No acute distress, AAOX3
Neck: Negative JVD
Heart: Regular, positive S1/S2, No murmur
Lungs: CTA b/l, negative wheezes/rales/rhonchi
Abd: Positive BS, NT/ND, neg rebound/rigidity/guarding
Ext: Negative cyanosis/clubbing/edema
Neuro: nonfocal
Plan:
Symptoms of escalating exertional chest pressure with dizziness and episode of syncope yesterday 06/28/2024 concerning for angina
-Outpatient cardiac monitoring as well as inpatient cardiac monitoring does not demonstrate any recurrent atrial arrhythmias or symptomatic bradycardia to account for symptoms
-Fortunately cardiac biomarkers negative
-Orthostatics mildly positive today
-Repeat 2D echocardiogram, last in 2022 with normal biventricular size and systolic function and no hemodynamically significant valve pathology.
-Lexiscan nuclear stress test April 09, 2024 without fixed or reversible defects and no appreciative TID. EF 66%.
-He does have atherosclerotic disease on noncardiac imaging noted in both coronary, aorta and mesenteric arteries.
-We discussed proceeding with cardiac catheterization which had been previously reviewed as an outpatient and he is agreeable
-Will hold Eliquis which she received this morning and start aspirin 81 mg daily while off Eliquis
-Start atorvastatin 20 mg daily for LDL 109 mg/dL, triglycerides 178 mg/dL, HDL 49 mg/dL.
-Hemoglobin A1c 5.2%.
-Plan for left heart catheterization tomorrow
History of paroxysmal atrial fibrillation/atrial tachycardia currently in sinus rhythm
-Not on rate limiting agents or antihypertensive therapy
-Check TSH
-Chronically on Eliquis which will be held for cardiac catheterization
will follow with you
Original Note:
Consultation
Consultation Request
Date/Time Consultation Requested: 06/28/24 at 2359
Date/Time Consultation Performed: 06/29/24 at 0741
Requesting Provider: Dr. Hurtado
Performing Provider: Dr. Persaud
Reason for Consultation: Syncope, Afib
Medical History
-
History of Present Illness:
Patient came to ER yesterday after an episode of chest pressure and later syncope at home, cardiology has been consulted. Patient says that he started with symptoms 2-3 months ago. Patient says that at least 6 days a week he has symptoms, symptoms
described as waking up in his usual state of health, ambulating down a flight of stairs and standing to make coffee and then sometime after that starting with chest pressure that is heavy in the upper chest. Pressure is followed by feeling
lightheaded and near syncopal and these symptoms resolve with sitting. Symptoms are sometimes better with eating, other times no improvement with eating and other times symptoms resolve without specific intervention. Patient wore a 7 day CAM 02/2024
that showed SR with brief episodes of atrial tachycardia, but no Afib/flutter, no pause, mean HR 67. Patient then had a Lexiscan mibi 04/09/24. Last echo was 2022. Labs unremarkable in the ER. No documented orthostatic VS.
PMH:
Paroxysmal Afib
Paroxysmal typical atrial flutter
Chronic Eliquis OAC
Paroxysmal atrial tachycardia
h/o small intestine bacterial overgrowth
Past Medical History
Past Medical History: Other (in HPI)
Past Surgical History: Orthopedic and Other (left lobectomy for histoplasmosis 1974)
Social History
Tobacco: Former Smoker
Alcohol: None
Drug: None
Personal:
Living: With Family
Family History
Family History: CAD (CHF as well) and Cancer
Allergies / Home Medications
Allergy/AdvReac Type Severity Reaction Status Date / Time
Penicillins Allergy redness,difficulty Verified 06/28/24 15:14
breathing,
swelling
Shellfish *RETIRED-12/11/11 Allergy redness,difficulty Verified 06/28/24 15:14
[Shellfish] breathing,swelling
sulfamethoxazole Allergy Shortness Verified 06/28/24 15:14
[From Bactrim] of Breath
trimethoprim [From Bactrim] Allergy Shortness Verified 06/28/24 15:14
of Breath
bees Allergy redness,difficulty Uncoded 06/28/24 15:14
breathing,swelling
�Medication �Instructions �Recorded �Confirmed �Type
multivitamin with folic acid 400 1 tab PO DAILY Supplement 07/13/10 06/28/24 History
mcg tablet (Tab-A-Johanna)
finasteride 5 mg tablet 5 mg PO QPM Urinary issue 10/17/11 06/28/24 History
albuterol sulfate 90 mcg/actuation 2 puff inhalation R Q4 PRN 12/30/18 06/28/24 History
aerosol inhaler sob/wheezing
cholecalciferol (vitamin D3) 50 2,000 units PO DAILY Supplement 11/01/20 06/28/24 History
mcg (2,000 unit) tablet
lorazepam 0.5 mg tablet 0.5 mg PO HS 11/01/20 06/28/24 History
apixaban 5 mg tablet (Eliquis) 5 mg PO BID #30 tabs 02/09/21 06/28/24 Rx
duloxetine 40 mg capsule,delayed 40 mg PO DAILY 06/28/24 06/28/24 History
release
linaclotide 145 mcg capsule 145 mcg PO DAILY 06/28/24 06/28/24 History
(Linzess)
melatonin 3 mg tablet 3 mg PO HS PRN insomnia 06/28/24 06/28/24 History
omeprazole 40 mg capsule,delayed 40 mg PO DAILY 06/28/24 06/28/24 History
release
senna PRN constipation 06/28/24 History
tiotropium bromide 1.25 2 puff inhalation DAILY 06/28/24 06/28/24 History
mcg/actuation mist for inhalation
(Spiriva Respimat)
Review of Systems
-
History Source: Patient and Family ( by speakerphone throughout consultation)
All other systems: Negative unless noted
Physical Exam
Vital Signs
Temp Pulse Resp BP Pulse Ox
97.8 F 84 18 143/84 98
06/29/24 03:30 06/28/24 21:00 06/29/24 03:30 06/28/24 20:59 06/29/24 03:30
GEN: NAD. AAOx3
HEENT: EOMI, MMM
LUNGS: RA. CTA B/L, no wheeze
CV: SR on tele. Reg, S1/S2, no murmur
ABD: soft, BS+, NT, ND
EXT: No clubbing, cyanosis, lesions or edema B/L
NEURO: Gross non-focal
SKIN: Warm, dry and pink. No rash
Lab Results
06/29/24 03:44
06/29/24 03:44
Troponin I < 0.012 ng/ml 06/29/24 03:44
Impression / Plan
-
PCP: Dr. Dilshad Wilkerson
Card: Dr. Kamara
Impression:
Admitted with chest pain and syncope 06/28/24
Syncope
Chest pain
Weight loss
Paroxysmal Afib
Paroxysmal typical atrial flutter
Chronic Eliquis OAC
Paroxysmal atrial tachycardia
h/o small intestine bacterial overgrowth
Lexiscan mibi 04/09/24: Normal no fixed or reversible defects are seen, TID not present, normal contractility EF 66%,
Echo 12/13/22: EF 62%, normal diastolic function, mild MR, trace aortic regurgitation
Plan:
-Patient came to ER yesterday after an episode of chest pressure and later syncope at home, cardiology has been consulted. Patient says that he started with symptoms 2-3 months ago. Patient says that at least 6 days a week he has symptoms, symptoms
described as waking up in his usual state of health, ambulating down a flight of stairs and standing to make coffee and then sometime after that starting with chest pressure that is heavy in the upper chest. Pressure is followed by feeling
lightheaded and near syncopal and these symptoms resolve with sitting. Symptoms are sometimes better with eating, other times no improvement with eating and other times symptoms resolve without specific intervention. Patient wore a 7 day CAM 02/2024
that showed SR with brief episodes of atrial tachycardia, but no Afib/flutter, no pause, mean HR 67. Patient then had a Lexiscan mibi 04/09/24. Last echo was 2022. Labs unremarkable in the ER. No documented orthostatic VS.
-ECG reviewed by me is SR with QTc 432 ms. Tele reviewed by me is sinus bradycardia overnight, no pauses or arrhythmia.
-Talked with patient and via speakerphone in the room. Made a plan to check orthostatic VS, check echo and consider cath.
-Check orthostatic VS, ordered by me.
-Patient has lost about 40 lbs in the last 1-2 years due in part to small intestine bacterial overgrowth. Weight loss could be part of his symptoms.
-Last echo was in 2022, repeat today.
-Troponin serially normal or undetectable. We reviewed last stress test. Patient previously not interested in cath at 05/26/24 office visit, but would be willing to pursue now pending outcome of echo.
-Pending results of all of the above, it could be that his symptoms are related to orthostasis. Patient does not take antihypertensive meds.
-Patient with known paroxysmal Afib, but none seen on monitor 02/2024 and none seen on tele thus far this admission.
-Cont Eliquis 5 mg BID (age 83, wt 89.3 kg)
[2024-06-29] MEDS: SPIRIVA RESPIMAT 2.5 MCG 2 PUFF INH (08:22)
[2024-06-29] MEDS: PROTONIX 40 MG PO (08:25)
[2024-06-29] MEDS: THERAGRAN 1 TABLET PO (08:25)
[2024-06-29] MEDS: VITAMIN D3 (cholecalciferol) 50 MCG PO (08:25)
[2024-06-29] MEDS: ELIQUIS 5 MG PO (08:25)
[2024-06-29] MEDS: CYMBALTA DELAYED RELEASE 40 MG PO (08:25)
[2024-06-29] MEDS: LOW STRENGTH ASPIRIN 81 MG PO (08:25)
[2024-06-29] MEDS: LINZESS 145 MCG PO (08:26)
[2024-06-29] MEDS: LR 1000 IV ×2 (09:16→21:51)
[2024-06-29] MEDS: TYLENOL 650 MG PO (09:26)
[2024-06-29 09:40] LABS: Glycohemoglobin (HgbA1c) 5.2 % (4.0-5.6)
[2024-06-29 09:54] LABS: Troponin I < 0.012 ng/ml
--- NOTE | 2024-06-29 11:09 | W.PN.HOSP.TC ---
Today's Communication/Plan
-
echo
cath
holding eliquis for cath
Assessment / Plan
Assessment / Plan
A/P: Patient is an 83y M with PMH significant for hypertension, A-Fib and COPD who presents to ED complaining of 2-3 months of exertional dyspnea and chest pain and now syncopal event this evening.
Exertional Chest Pain / Dyspnea
Syncope ?due to orthostatic hypotesion
- EKG is unremarkable. trop remains negative.
- Concerning symptoms for worsening angina - despite unremarkable stress test March 2024.
- Monitor on tele for arrhythmia none so far
- Started on statin. Eliquis on hold and started on aspirin in the interim per cards
- Monitor for any new / worsening / recurrent symptoms.
- Check Echo.
- Plan for cardiac cath for tomm noted
- Cardio evaluation for additional recommendations -
Paroxysmal Atrial Fibrillation
- In sinus rhythm at present.
- Not on any rate control medications.
-Started on statin. Eliquis on hold and started on aspirin in the interim per cards
COPD without Acute Exacerbation
- Remote history of cigar smoking. No prior cigarette smoking.
- Continue Spiriva and albuterol PRN.
Anxiety / Depression / Insomnia
- Stable. Continue current med regimen including nightly Ativan.
DVT Prophylaxis: scds
Code Status: Full
d/w with spouse at bedside in details
Anticipated Discharge: > 48 hours
Subjective/Interval History
-
Date of Service: June 29, 2024
states of mild chest pressure
Objective Data
-
Labs:
Laboratory Results
06/29/24
03:44
WBC 4.2 L
Hgb 12.8 L
Hct 37.1 L
Plt Count 130
Sodium 140
Potassium 3.7
Chloride 108 H
Carbon Dioxide 29
BUN 12
Creatinine 0.8
Glucose 103 H
Calcium 9.4
Vital Signs:
Vital Signs
Temp Pulse Resp BP Pulse Ox
97.5 F 67 16 104/61 98
06/29/24 08:02 06/29/24 09:30 06/29/24 08:26 06/29/24 08:29 06/29/24 08:26
I&O
06/28/24 06/29/24 06/30/24
06:59 06:59 06:59
Intake Total 480 / 480
Balance 480 / 480
Physical Exam
-
General: Well Developed and No Apparent Distress
HEENT: Normocephalic, Atraumatic and Moist Mucous Membranes
Respiratory: Clear to Auscultation
Cardiac: Regular Rhythm and S1/S2; Negative Murmur, Rub or Gallop
GI: Soft, Nontender, Nondistended and Normal Bowel Sounds; Negative Organomegaly
Rectal: Deferred by Provider
Musculoskeletal: No Clubbing, No Cyanosis and No Edema
Skin: Negative Rash
Neuro: Awake and Nonfocal/Grossly Intact
Psych: Calm
Data Reviewed
-
Total Time Spent with Patient (in minutes): 55
--- NOTE | 2024-06-29 12:37 | CM ---
Chart reviewed. Patient is independent of ADLS, lives with his in a [address], 5 BRENDA, ambulates with a SPC. Plan is for the patient to return home. CM to follow
[2024-06-29] MEDS: PROSCAR 5 MG PO (18:22)
--- NOTE | 2024-06-29 18:45 | PTCARENOTE ---
pt SR on the monitor this shift, no c/o pain or SOB. VSS
[2024-06-29] MEDS: ATIVAN 0.5 MG PO (21:51)
[2024-06-29] MEDS: MELATONIN 3 MG PO (21:51)
--- NOTE | 2024-06-29 22:27 | PTCARENOTE ---
Received patient at change of shift. SR with a first degree on the monitor, HR in the 60s. LR running as per order, see MAY. NPO at midnight. No complaints from pt at this time, call bob within reach.
[2024-06-30] VITALS (15 sets, daily range): BP systolic 115–150; BP diastolic 60–91; BMI 26.2
[2024-06-30] MEDS: SPIRIVA RESPIMAT 2.5 MCG 2 PUFF INH (07:58)
[2024-06-30] MEDS: LOW STRENGTH ASPIRIN 81 MG PO (08:17)
[2024-06-30] MEDS: PROTONIX 40 MG PO (08:17)
[2024-06-30] MEDS: CYMBALTA DELAYED RELEASE 40 MG PO (08:17)
[2024-06-30] MEDS: LINZESS 145 MCG PO (08:18)
--- NOTE | 2024-06-30 09:49 | W.PN.HOSP.TC ---
Today's Communication/Plan
-
cath today
cards recs
restart eliquis post cath?
check labs
Assessment / Plan
Assessment / Plan
A/P: Patient is an 83y M with PMH significant for hypertension, A-Fib and COPD who presents to ED complaining of 2-3 months of exertional dyspnea and chest pain and now syncopal event this evening.
Exertional Chest Pain / Dyspnea
Syncope ?due to orthostatic hypotesion
- EKG is unremarkable. trop remains negative.
- Concerning symptoms for worsening angina - despite unremarkable stress test March 2024.
- Monitor on tele for arrhythmia none so far
- Started on statin. Eliquis on hold and started on aspirin in the interim per cards
- Monitor for any new / worsening / recurrent symptoms.
- ECHO noted
- Plan for cardiac cath for today.
- Cardio evaluation for additional recommendations -
Paroxysmal Atrial Fibrillation
- In sinus rhythm at present.
- Not on any rate control medications.
-Started on statin. Eliquis on hold and started on aspirin in the interim per cards
COPD without Acute Exacerbation
- Remote history of cigar smoking. No prior cigarette smoking.
- Continue Spiriva and albuterol PRN.
Anxiety / Depression / Insomnia
- Stable. Continue current med regimen including nightly Ativan.
DVT Prophylaxis: scds as eliquis on hold for cath
Code Status: Full
d/w with spouse at bedside in details
Anticipated Discharge: 24 - 48 hours
Subjective/Interval History
-
Date of Service: June 30, 2024
remains with chest pressure -worse w/walking
Objective Data
-
Labs:
Laboratory Results
06/30/24
09:39
WBC Pending
Hgb Pending
Hct Pending
Plt Count Pending
Sodium Pending
Potassium Pending
Chloride Pending
Carbon Dioxide Pending
BUN Pending
Creatinine Pending
Glucose Pending
Calcium Pending
Vital Signs:
Vital Signs
Temp Pulse Resp BP Pulse Ox
97.4 F 71 16 117/66 98
06/30/24 07:13 06/30/24 08:02 06/30/24 08:02 06/30/24 07:11 06/30/24 08:02
I&O
06/29/24 06/30/24 07/01/24
06:59 06:59 06:59
Intake Total 960 / 960
Output Total 300 / 300
Balance 960 / 960 -300 / -300
Physical Exam
-
General: Well Developed and No Apparent Distress
HEENT: Normocephalic, Atraumatic and Moist Mucous Membranes
Respiratory: Clear to Auscultation
Cardiac: Regular Rhythm and S1/S2; Negative Murmur, Rub or Gallop
GI: Soft, Nontender, Nondistended and Normal Bowel Sounds; Negative Organomegaly
Rectal: Deferred by Provider
Musculoskeletal: No Clubbing, No Cyanosis and No Edema
Skin: Negative Rash
Neuro: Awake and Nonfocal/Grossly Intact
Psych: Calm
[2024-06-30 10:21] LABS: Blood Urea Nitrogen 12 mg/dl (9-20); Calcium 9.4 mg/dl (8.4-10.2); Carbon Dioxide 31 mmol/L (22-30); Chloride 107 mmol/L (98-107); Estimated Creatinine Clearance 94 ml/min; Glucose 98 mg/dl (70-99); Potassium 4.9 mmol/L (3.5-5.1); Sodium 142 mmol/L (135-145); eGFR > 60.00
[2024-06-30] MEDS: LR 1000 IV (10:23)
[2024-06-30] MEDS: VITAMIN D3 (cholecalciferol) PO (10:26)
[2024-06-30] MEDS: THERAGRAN PO (10:26)
[2024-06-30 10:28] LABS: % Basophils 0.4 % (0-2); % Eosinophils 1.7 % (0-6); % Immature Granulocytes 0.4 % (0-0.5); % Lymphocytes 28.8 % (20.5-51.1); % Monocytes 16.3 % (1.7-9.3); % Neutrophils 52.4 % (42.2-75.2); Absolute Lymphocytes 0.7 10^3/uL (1.2-3.4); Absolute Monocytes 0.4 10^3/uL (0.1-0.6); Absolute Neutrophils 1.2 10^3/uL (1.4-6.5); Hematocrit 36.9 % (39.0-52.0); Hemoglobin 12.3 g/dL (13.0-18.0); Mean Corp Hgb Conc. 33.3 g/dL (33.0-37.0); Mean Corpuscular Hgb 33.6 pg (27.0-31.0); Mean Corpuscular Volume 100.8 fL (80.0-94.0); Nucleated Red Blood Cells % 0 % (-); Red Blood Cell Count 3.66 10^6/uL (4.70-6.10); Red Cell Dist. Width 13.1 % (11.5-14.5)
[2024-06-30 10:29] LABS: White Blood Cell Count 2.3 10^3/uL (4.8-10.8)
--- NOTE | 2024-06-30 10:36 | PTCARENOTE ---
Pt with critical result wbc 2.3, hospitalist made aware via TT. 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
--- NOTE | 2024-06-30 10:43 | CM ---
Chart reviewed. Patient is waiting to go for a cardiac cath. Patient is independent of ADLS, lives with his in a [address], 5 [address], ambulates with a SPC. Plan is for the patient to return home. CM to follow
[2024-06-30 11:04] LABS: Mean Platelet Volume 10.5 fL (7.4-10.4); Platelet Count 106 10^3/uL (130-400)
--- NOTE | 2024-06-30 15:10 | PTCARENOTE ---
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
[2024-06-30] MEDS: NSS 1000 IV (15:26)
--- NOTE | 2024-06-30 18:17 | ITS.CL.CATH ---
Plunger Machine Operator - Catheterization
Cardiac Catheterization
Procedure Report:
LEFT HEART CATHETERIZATION
Date of Procedure: June 30, 2024
Referring: Kaykay Persaud
PROCEDURES:
1. Left heart catheterization, coronary angiogram.
2. Moderate Sedation
INDICATION: Concern for unstable angina
ACCESS: Right radial artery, 6 Prydeinig sheath, under ultrasound guidance.
Ultrasound was utilized for vascular access. The radial artery was visualized under ultrasound, and the vessel was patent and pulsatile. An image was stored permanently in the patient's medical record. Under direct ultrasound guidance, a 6 Prydeinig
sheath was inserted into the artery using a micropuncture kit through a modified Seldinger technique.
HEMODYNAMICS : (mmHg)
AO (s/d) : 183/85
LVEDP : 22
CORONARY FINDINGS
DOMINANCE: Left
LEFT MAIN: The left main artery is a large-caliber vessel which gives rise to the left anterior descending artery and the left circumflex artery. There is mild Fuhs atherosclerotic plaque. In some cranial views there appears to be 10-20% ostial
left main stenosis.
LEFT ANTERIOR DESCENDING: The left anterior descending artery is a medium to large caliber vessel which gives rise to 1 major medium to large caliber diagonal branch as it courses to the anterior interventricular groove and wraps around the apex.
There is mild diffuse atherosclerotic plaque.
CIRCUMFLEX: The left circumflex artery is a medium caliber vessel which gives rise to 1 major obtuse marginal branch, left posterolateral branch and the left posterior descending artery. There is mild diffuse atherosclerotic plaque.
RIGHT CORONARY ARTERY: The right coronary artery is a small caliber, nondominant vessel without significant obstructive CAD.
SEDATION: 37 minutes of procedural sedation was utilized. An independent medical biller coder was present to assist with and help manage the patient's level of consciousness and physiologic status.
RADIATION SUMMARY: Fluoro Time (min): 4.5, Dose (mGy): 350.53, DAP (Gy.cm2) : 22.0
Closure Device: Vascular band over right radial, 10 cc of air.
CONCLUSIONS
1. No obstructive coronary artery disease.
2. Elevated LVEDP at 22 mmHg in the setting of systemic hypertension.
RECOMMENDATIONS
1. Optimization of medical therapy for underlying mild coronary artery disease and filling pressures.
2. Consideration for workup of noncardiac causes of lightheadedness and shortness of breath.
3. Wean radioman per protocol.
Audrey Rodriguez MD, FACC, [facility]
[2024-06-30] MEDS: PROSCAR 5 MG PO (18:35)
[2024-06-30] MEDS: ATIVAN 0.5 MG PO (22:09)
[2024-06-30] MEDS: MELATONIN 3 MG PO (22:09)
--- NOTE | 2024-06-30 23:52 | PTCARENOTE ---
Received patient at change of shift. SR with a first degree on the monitor, HR in the 60s. R radial band CDI, R radial pulse normal. Pt requested PRN melatonin, administered as per MAY, see documentation. No complaints from pt at this time, call
bob within reach.
[2024-07-01] VITALS (10 sets, daily range): BP systolic 111–134; BP diastolic 53–85; PULSE 51–99; O2SAT 100; BMI 26.2
[2024-07-01 05:14] LABS: % Basophils 0.3 % (0-2); % Immature Granulocytes 0.7 % (0-0.5); % Lymphocytes 30.2 % (20.5-51.1); % Monocytes 15.6 % (1.7-9.3); % Neutrophils 51.2 % (42.2-75.2); Absolute Eosinophils 0.1 10^3/uL (0-0.7); Absolute Lymphocytes 0.9 10^3/uL (1.2-3.4); Absolute Monocytes 0.5 10^3/uL (0.1-0.6); Absolute Neutrophils 1.5 10^3/uL (1.4-6.5); Hematocrit 35.3 % (39.0-52.0); Hemoglobin 12.1 g/dL (13.0-18.0); Mean Corp Hgb Conc. 34.3 g/dL (33.0-37.0); Mean Corpuscular Hgb 34.3 pg (27.0-31.0); Nucleated Red Blood Cells % 0 % (-); Platelet Count 108 10^3/uL (130-400); Red Blood Cell Count 3.53 10^6/uL (4.70-6.10)
[2024-07-01 05:35] LABS: Blood Urea Nitrogen 14 mg/dl (9-20); Calcium 9.2 mg/dl (8.4-10.2); Carbon Dioxide 29 mmol/L (22-30); Chloride 106 mmol/L (98-107); Estimated Creatinine Clearance 94 ml/min; Glucose 93 mg/dl (70-99); Potassium 3.9 mmol/L (3.5-5.1); Sodium 141 mmol/L (135-145); eGFR > 60.00
[2024-07-01] MEDS: SPIRIVA RESPIMAT 2.5 MCG 2 PUFF INH (07:14)
[2024-07-01] MEDS: PROTONIX 40 MG PO (07:32)
[2024-07-01] MEDS: THERAGRAN 1 TABLET PO (07:32)
[2024-07-01] MEDS: LINZESS 145 MCG PO (07:32)
[2024-07-01] MEDS: LOW STRENGTH ASPIRIN 81 MG PO (07:32)
[2024-07-01] MEDS: VITAMIN D3 (cholecalciferol) 50 MCG PO (07:32)
[2024-07-01] MEDS: CYMBALTA DELAYED RELEASE 40 MG PO (07:32)
[2024-07-01] MEDS: FLUSH (NSS) 1 FLUSH IV (07:33)
--- NOTE | 2024-07-01 10:18 | W.PN.CARDCBS ---
Addendum entered and electronically signed by Audrey Rodriguez MD 07/01/24 17:55:
I saw and examined the patient.
The Diamond Grinder's note was reviewed and I agree with the note.
Comment: Patient is doing well this morning and has not had any recurrent chest discomfort. He has been out of bed walking to the bathroom and felt a little unstable he but denies any lightheadedness.
Orthostatic vital signs were rechecked this morning and are unremarkable. Otherwise patient is an older gentleman, no acute distress, awake, alert and oriented x 3, regular rate, normal S1 and S2, right radial access site with dressing in place
which is clean, dry and intact without evidence of hematoma or bruit, intact pulse, lungs are clear to auscultation bilaterally, abdomen is soft, nontender, nondistended with active bowel sounds, warm extremities without significant edema.
Troponins remain negative this admission. Heart catheterization without obstructive CAD.
Recommendations:
1. No clear cardiac etiology to explain chest pressure. We discussed that given his prior history of taking Protonix for GERD to reconsider initiating this. Defer to primary team.
2. PT OT evaluation given he feels him balance and unsteady walking to the bathroom to assess need for physical therapy upon discharge.
3. Orthostatic vital signs were negative this morning. We did discuss considering lower extremity SIGIFREDO stockings which are knee-high to allow for venous return.
We will sign off from a cardiac standpoint. Please call us with any further questions or concerns.
Audrey Rodriguez MD, [facility], [facility]
Original Note:
Today's Communication / Plan
-
Unremarkable ortho VS today
PT/OT ordered by me
No evidence of cardiac source of chest pain
Impression / Plan
-
PCP: Dr. Dilshad Wilkerson
Card: Dr. Kamara
Impression:
Admitted with chest pain and syncope 06/28/24
Syncope
Chest pain
No obstructive CAD by cardiac cath 06/30/2024
Weight loss
Paroxysmal Afib
Paroxysmal typical atrial flutter
Chronic Eliquis OAC
Paroxysmal atrial tachycardia
h/o small intestine bacterial overgrowth
Lexiscan mibi 04/09/24: Normal no fixed or reversible defects are seen, TID not present, normal contractility EF 66%,
Echo 12/13/22: EF 62%, normal diastolic function, mild MR, trace aortic regurgitation
Echo 06/29/2024: EF 55 to 60%, mild MR, trace aortic regurgitation, no pericardial effusion
Plan:
-Following serially normal troponin levels the patient underwent cardiac catheterization on 06/30/2024 that showed no evidence of obstructive CAD
-Orthostatic vital signs from 06/29/2024 included supine BP of 126/65 and standing BP of 104/61, but patient was asymptomatic. Orthostatic vital signs repeated on 07/01/2024 and supine BP 126/53 and standing BP 120/72 and again asymptomatic.
-Patient with evidence of systemic HTN including LVEDP of 22 by cardiac cath 06/30/2024
-Chest pain on admission that does not appear to be cardiac at this point. Outpatient dose of omeprazole was changed to Protonix this admission and patient seems to have somewhat of a symptomatic improvement and that he previously had symptoms 6
out of 7 days of the week, but that has improved during his third day here with us.
-PT/OT evaluations placed by me, will look for recurrence of symptoms and follow BP/HR with activity
-Echo noted above showed preserved EF without significant valve disease. No evidence of pericardial effusion
-Patient with known paroxysmal Afib, but none seen on monitor 02/2024 and none seen on tele thus far this admission.
-Restart outpatient dose of Eliquis 5 mg BID (age 83, wt 89.3 kg) on 07/01/2024 PM, ordered by me.
HPI: Patient came to ER yesterday after an episode of chest pressure and later syncope at home, cardiology has been consulted. Patient says that he started with symptoms 2-3 months ago. Patient says that at least 6 days a week he has symptoms,
symptoms described as waking up in his usual state of health, ambulating down a flight of stairs and standing to make coffee and then sometime after that starting with chest pressure that is heavy in the upper chest. Pressure is followed by feeling
lightheaded and near syncopal and these symptoms resolve with sitting. Symptoms are sometimes better with eating, other times no improvement with eating and other times symptoms resolve without specific intervention. Patient wore a 7 day CAM 02/2024
that showed SR with brief episodes of atrial tachycardia, but no Afib/flutter, no pause, mean HR 67. Patient then had a Lexiscan mibi 04/09/24. Last echo was 2022. Labs unremarkable in the ER. No documented orthostatic VS.
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
Subjective
Date of Service: July 01, 2024
He felt unsteady earlier, but feeling better now
Objective
Labs:
07/01/24 04:10
07/01/24 04:10
Labs
Hgb 12.1 g/dL (13.0-18.0) L 07/01/24 04:10
Hct 35.3 % (39.0-52.0) L 07/01/24 04:10
Plt Count 108 10^3/uL (130-400) L 07/01/24 04:10
Sodium 141 mmol/L (135-145) 07/01/24 04:10
Potassium 3.9 mmol/L (3.5-5.1) 07/01/24 04:10
BUN 14 mg/dl (9-20) 07/01/24 04:10
Creatinine 0.7 mg/dL (0.7-1.3) 07/01/24 04:10
Glucose 93 mg/dl (70-99) 07/01/24 04:10
Troponins
06/28/24 06/28/24 06/29/24
18:03 21:37 03:44
Troponin I 0.015 < 0.012 < 0.012
06/29/24
09:20
Troponin I < 0.012
Vital Signs and I&O:
Vital Signs
Temp Pulse Resp BP Pulse Ox
97.3 F 45 18 134/66 100
07/01/24 07:47 07/01/24 08:00 07/01/24 07:47 07/01/24 07:49 07/01/24 07:47
Vital Signs
Temp Pulse Resp BP Pulse Ox
97.3 F 45 18 134/66 100
07/01/24 07:47 07/01/24 08:00 07/01/24 07:47 07/01/24 07:49 07/01/24 07:47
Intake & Output
06/29/24 06/30/24 07/01/24 07/02/24
06:59 06:59 06:59 06:59
Intake Total 960 / 960 960 / 960 1440 / 1440
Output Total 300 / 300
Balance 960 / 960 960 / 960 1140 / 1140
Physical Exam
Physical Exam
GEN: AAOx3
HEENT: EOMI
LUNGS: RA. No wheeze
CV: SR on tele.
EXT: No edema B/L
NEURO: Gross non-focal
SKIN: No rash
--- NOTE | 2024-07-01 11:08 | CM ---
Addendum entered by Karen Haro RN 07/01/24 15:30:
PT recommending Home PT. Patient is agreeable to VN. Referral sent to [facility].
Original Note:
Chart reviewed. Patient is independent of ADLS, lives with his in a [address], [address], ambulates with a SPC. Plan is for the patient to return home. CM to follow
--- NOTE | 2024-07-01 11:58 | W.PN.HOSP.TC ---
Today's Communication/Plan
-
cards recs
Dispo pending rehab eval
PT eval
cont ppi
restart Eliquis
Assessment / Plan
Assessment / Plan
A/P: Patient is an 83y M with PMH significant for hypertension, A-Fib and COPD who presents to ED complaining of 2-3 months of exertional dyspnea and chest pain and now syncopal event this evening.
Exertional Chest Pain / Dyspnea
Syncope ?due to orthostatic hypotesion
- EKG is unremarkable. trop remains negative.
- Monitor on tele for arrhythmia none so far. VSS
- Started on statin.
- Monitor for any new / worsening / recurrent symptoms.
- ECHO noted
- Plan for cardiac cath w/no obstructive CAD
-? GI related. Cont w/PPI. Has GI f/u at [facility]. Has Pulmonary f/u next week Dr. Uribe and PCP f/u next week too.
Paroxysmal Atrial Fibrillation
- In sinus rhythm at present.
- Not on any rate control medications.
-Started on statin. Eliquis on hold and started on aspirin in the interim per cards
COPD without Acute Exacerbation
- Remote history of cigar smoking. No prior cigarette smoking.
- Continue Spiriva and albuterol PRN. No wheezing. on Room air.
Anxiety / Depression / Insomnia
- Stable. Continue current med regimen including nightly Ativan.
SIBO
-follows w/ Dr. Alexey LEMOS at. [facility]
Chronic thrombocytopeniav
Chronic Leukopenia
-f/u w/PCP. WBC improved.
Lumbar stenosis
Lumbar radiculopathy
Lumbar spondylosis
DVT Prophylaxis: restart Eliquis
Code Status: Full
d/w with spouse at bedside in details on daily basis
Anticipated Discharge: Today
Subjective/Interval History
-
Date of Service: July 01, 2024
ambulated in the hallway didnot feel sob.
states of upper chest discomfort
no left sided substernal chest pain
Objective Data
-
Labs:
Laboratory Results
07/01/24
04:10
WBC 3.0 L
Hgb 12.1 L
Hct 35.3 L
Plt Count 108 L
Sodium 141
Potassium 3.9
Chloride 106
Carbon Dioxide 29
BUN 14
Creatinine 0.7
Glucose 93
Calcium 9.2
Vital Signs:
Vital Signs
Temp Pulse Resp BP Pulse Ox
98.0 F 72 18 120/70 100
07/01/24 11:32 07/01/24 11:34 07/01/24 11:32 07/01/24 11:34 07/01/24 11:32
I&O
06/30/24 07/01/24 07/02/24
06:59 06:59 06:59
Intake Total 960 / 960 1440 / 1440
Output Total 300 / 300
Balance 960 / 960 1140 / 1140
Physical Exam
-
General: Well Developed and No Apparent Distress
HEENT: Normocephalic, Atraumatic and Moist Mucous Membranes
Respiratory: Clear to Auscultation and Non Labored Respirations; Negative Accessory Resp Muscle Use
Cardiac: Regular Rhythm and S1/S2; Negative Murmur, Rub or Gallop
GI: Soft, Nontender, Nondistended and Normal Bowel Sounds; Negative Organomegaly
Rectal: Deferred by Provider
Musculoskeletal: No Clubbing, No Cyanosis and No Edema
Skin: Negative Rash
Neuro: Awake, No Motor Deficits and Nonfocal/Grossly Intact
Psych: Calm
--- NOTE | 2024-07-01 13:34 | PTCARENOTE ---
Rec'd pt at handoff. Tele- SR. Assessment completed as documented. Pt ambulatory around room w/ assist x1 and RW. No complaints dizziness/SOB/discomfort. Plan of care verbalized w/ pt and verbalizes understanding.
--- NOTE | 2024-07-01 14:31 | W.DCSUMMARY ---
Discharge Summary
Discharge Data
Date of Admission: 06/28/24
Date of Discharge: 07/01/24
-
Pending Results: No
Hospital Course
83y M with PMH significant for hypertension, SIBO, A-Fib and COPD who presents to ED complaining of 2-3 months of exertional dyspnea and chest pain and now syncopal event. Troponin negative. EKG was unremarkable. Underwent evaluation by
cardiology and underwent cardiac catheterization with no obstructive coronary artery disease. Echocardiogram EF of 55 to 60%. Normal biventricular size and systolic function without regional wall motion abnormality. Telemetry no arrhythmia.
Orthostatic vitals are negative. Patient was ambulating without difficulty. Patient was tolerating diet without any difficulty. No further event of lightheaded and dizziness syncopal episode during hospitalization. Recommended follow-up
outpatient with pulmonary and gastroenterology.
Discharge Plan
-
Patient Disposition: Home (Routine Discharge)
Discharge Diagnosis/Procedures: Chest discomfort s/p cardiac catheterization
Leukopenia
Condition: Fair
Diet: Low Cholesterol
Activity: With assistance and As tolerated
Driving Restrictions: As prior to admission
Blood Work: cbc and bmp in 1 week via primary doctor.
Stand Alone Forms: DC Instructions- Cath/EP Lab
Referrals:
[facility] [Outside]
Dilshad Wilkerson DO [Family Provider] - in less than 1 week
Prescriptions:
New
atorvastatin [Lipitor] 20 mg tablet
20 mg PO HS Qty: 30 0RF
Continued
multivitamin with folic acid [Tab-A-Johanna] 1 TABLET tablet
1 tab PO DAILY
finasteride 5 MG tablet
5 mg PO QPM
albuterol sulfate 1 PUFF HFA aerosol inhaler
2 puff inhalation R Q4 PRN (Reason: sob/wheezing)
cholecalciferol (vitamin D3) 2,000 UNITS tablet
2,000 units PO DAILY
lorazepam 0.5 MG tablet
0.5 mg PO HS
Patient Comments:
04/25/2022: last filled 12/04/21, 30 tabs for 30 days
Eliquis 5 MG tablet
5 mg PO BID Qty: 30 0RF
melatonin 3 mg Tablet
3 mg PO HS PRN (Reason: insomnia)
omeprazole 40 mg Capsule,Delayed Release(Dr/Ec)
40 mg PO DAILY
Linzess 145 mcg Capsule
145 mcg PO DAILY
duloxetine 40 mg Capsule,Delayed Release(Dr/Ec)
40 mg PO DAILY
Spiriva Respimat 1.25 mcg/actuation Mist
2 puff INHALATION DAILY
senna
PRN (Reason: constipation)
Discharge Orders:
Discharge Patient (As Directed); Ordered 07/01/24
Ordered By: Bean Hurtado
Care Plan Goals
Care Plan Goals:
Problem: Readiness for enhanced knowledge related to diagnosis and treatment plan
Goal: Understand your diagnosis and treatment plan needs, including medications if applicable.
Instructions: Know your diagnosis, underlying causes and treatment plan options, including medications if applicable. Consult with your health care team to learn about your diagnosis and treatment plan, including medications if applicable.
Discharge Date and Time
Print Language: YORUBA
--- NOTE | 2024-07-01 16:36 | PTCARENOTE ---
Discharged to home w/ [facility].
== END 2024-07-01 16:36 | disposition home or self-care (01) | DRG 287 ==
LOC: IVU 20:48
PROVIDERS: Emergency Medicine; Internal Medicine Interventional Cardiology; ADMITTING PHYSICIAN Hospitalist; ATTENDING PHYSICIAN Hospitalist; CONSULT PHYSICIAN Internal Medicine Cardiovascular Disease; EMERGENCY PHYSICIAN Emergency Medicine; FAMILY PHYSICIAN Family Medicine
PROC: B2111ZZ Fluoroscopy of Multiple Coronary Arteries using Low Osmolar Contrast (ICD-10-PCS; 2024-06-30)
PROC: 4A023N7 Measurement of Cardiac Sampling and Pressure, Left Heart, Percutaneous Approach (ICD-10-PCS; 2024-06-30)
DX: I25.110 Atherosclerotic heart disease of native coronary artery with unstable angina pectoris (principal); I48.3 Typical atrial flutter; I47.19 Other supraventricular tachycardia; I48.0 Paroxysmal atrial fibrillation; I95.1 Orthostatic hypotension; J44.89 Other specified chronic obstructive pulmonary disease; I11.0 Hypertensive heart disease with heart failure; I50.9 Heart failure, unspecified; Z87.891 Personal history of nicotine dependence; D72.819 Decreased white blood cell count, unspecified; Z79.01 Long term (current) use of anticoagulants; Z79.82 Long term (current) use of aspirin
CPT/HCPCS: 70450; 71045; 80048; 80053; 80061; 83036; 84484; 85025; 85027; 93005; 93306; 93458; 94640; 97162; 99152; 99153; 99285; C1894; Q9967

== ENCOUNTER 2024-07-22 12:02 | Outpatient (RCR) | payer MEDICARE, OTHER, SELFPAY | END 2024-07-22 23:59 | disposition home or self-care (01) | LOC: RPT 12:02 | PROVIDERS: ATTENDING PHYSICIAN Internal Medicine; FAMILY PHYSICIAN Family Medicine | DX: K59.09 Other constipation (principal); R15.9 Full incontinence of feces; N39.3 Stress incontinence (female) (male); Z73.6 Limitation of activities due to disability | CPT/HCPCS: 97110; 97112; 97140; 97164; 97530 ==

== ENCOUNTER 2024-08-06 11:57 | Outpatient (RCR) | payer MEDICARE, OTHER, SELFPAY | END 2024-08-06 23:59 | disposition home or self-care (01) | LOC: RPT 11:57 | PROVIDERS: ATTENDING PHYSICIAN Internal Medicine; FAMILY PHYSICIAN Family Medicine | DX: K59.09 Other constipation (principal); R15.9 Full incontinence of feces; N39.3 Stress incontinence (female) (male); Z73.6 Limitation of activities due to disability | CPT/HCPCS: 97140; 97530 ==

== ENCOUNTER 2024-09-02 13:11 | Outpatient (RCR) | payer MEDICARE, OTHER, SELFPAY | END 2024-09-02 23:59 | disposition home or self-care (01) | LOC: RPT 13:11 | PROVIDERS: ATTENDING PHYSICIAN Internal Medicine; FAMILY PHYSICIAN Family Medicine | DX: K59.09 Other constipation (principal); R15.9 Full incontinence of feces; N39.3 Stress incontinence (female) (male); Z73.6 Limitation of activities due to disability | CPT/HCPCS: 97110; 97530 ==

== ENCOUNTER → 2024-09-15 13:04 | Outpatient (REF) | payer MEDICARE, OTHER, SELFPAY | LOC: DHSLP 13:04 | PROVIDERS: ATTENDING PHYSICIAN Internal Medicine Critical Care Medicine; FAMILY PHYSICIAN Family Medicine | DX: G47.33 Obstructive sleep apnea (adult) (pediatric) (principal) | CPT/HCPCS: 95810 ==

== ENCOUNTER 2024-09-17 11:17 | Outpatient (RCR) | payer MEDICARE, OTHER, SELFPAY | END 2024-09-17 23:59 | disposition home or self-care (01) | LOC: RPT 11:17 | PROVIDERS: ATTENDING PHYSICIAN Nurse Practitioner; FAMILY PHYSICIAN Family Medicine | DX: R26.2 Difficulty in walking, not elsewhere classified (principal); G62.9 Polyneuropathy, unspecified; R26.89 Other abnormalities of gait and mobility; Z73.6 Limitation of activities due to disability; M79.605 Pain in left leg; M62.81 Muscle weakness (generalized) | CPT/HCPCS: 97110; 97112; 97163; 97530 ==

== ENCOUNTER 2024-10-01 11:28 | Outpatient (RCR) | payer MEDICARE, OTHER, SELFPAY | END 2024-10-01 23:59 | disposition home or self-care (01) | LOC: RPT 11:28 | PROVIDERS: ATTENDING PHYSICIAN Internal Medicine; FAMILY PHYSICIAN Family Medicine | DX: K59.09 Other constipation (principal); R15.9 Full incontinence of feces; N39.3 Stress incontinence (female) (male); Z73.6 Limitation of activities due to disability | CPT/HCPCS: 97140; 97530 ==

== ENCOUNTER 2024-10-20 10:06 | Outpatient (RCR) | payer MEDICARE, OTHER, SELFPAY | END 2024-10-20 23:59 | disposition home or self-care (01) | LOC: RPT 10:06 | PROVIDERS: ATTENDING PHYSICIAN Nurse Practitioner; FAMILY PHYSICIAN Family Medicine | DX: R26.2 Difficulty in walking, not elsewhere classified (principal); G62.9 Polyneuropathy, unspecified; R26.89 Other abnormalities of gait and mobility; Z73.6 Limitation of activities due to disability; M79.605 Pain in left leg; M62.81 Muscle weakness (generalized) | CPT/HCPCS: 97110; 97112; 97530 ==

== ENCOUNTER 2024-10-26 10:24 | Outpatient (RCR) | payer MEDICARE, OTHER, SELFPAY | END 2024-10-26 23:59 | disposition home or self-care (01) | LOC: RPT 10:24 | PROVIDERS: ATTENDING PHYSICIAN Internal Medicine; FAMILY PHYSICIAN Family Medicine | DX: K59.09 Other constipation (principal); R15.9 Full incontinence of feces; N39.3 Stress incontinence (female) (male); Z73.6 Limitation of activities due to disability | CPT/HCPCS: 97140; 97530 ==

== ENCOUNTER 2024-11-11 12:55 | Outpatient (RCR) | payer MEDICARE, OTHER, SELFPAY | END 2024-11-11 23:59 | disposition home or self-care (01) | LOC: RPT 12:55 | PROVIDERS: ATTENDING PHYSICIAN Nurse Practitioner; FAMILY PHYSICIAN Family Medicine | DX: R26.2 Difficulty in walking, not elsewhere classified (principal); G62.9 Polyneuropathy, unspecified; R26.89 Other abnormalities of gait and mobility; Z73.6 Limitation of activities due to disability; M79.605 Pain in left leg; M62.81 Muscle weakness (generalized) | CPT/HCPCS: 97110; 97112; 97530 ==

== ENCOUNTER 2024-12-01 12:15 | Outpatient (RCR) | payer MEDICARE, OTHER, SELFPAY | END 2024-12-03 23:59 | disposition home or self-care (01) | LOC: RPT 12:15 | PROVIDERS: ATTENDING PHYSICIAN Internal Medicine; FAMILY PHYSICIAN Family Medicine | DX: K59.09 Other constipation (principal); R15.9 Full incontinence of feces; N39.3 Stress incontinence (female) (male); Z73.6 Limitation of activities due to disability | CPT/HCPCS: 97110; 97140; 97530 ==

== ENCOUNTER 2024-12-14 10:07 | Outpatient (RCR) | payer MEDICARE, OTHER, SELFPAY | END 2024-12-14 23:59 | disposition home or self-care (01) | LOC: RPT 10:07 | PROVIDERS: ATTENDING PHYSICIAN Nurse Practitioner; FAMILY PHYSICIAN Family Medicine | DX: R26.2 Difficulty in walking, not elsewhere classified (principal); G62.9 Polyneuropathy, unspecified; R26.89 Other abnormalities of gait and mobility; Z73.6 Limitation of activities due to disability; M79.605 Pain in left leg; M62.81 Muscle weakness (generalized) | CPT/HCPCS: 97110; 97112; 97140; 97530 ==

== ENCOUNTER 2025-01-19 08:19 | Outpatient (RCR) | payer MEDICARE, OTHER, SELFPAY | END 2025-01-19 23:59 | disposition home or self-care (01) | LOC: RPT 08:19 | PROVIDERS: ATTENDING PHYSICIAN Internal Medicine; FAMILY PHYSICIAN Family Medicine | DX: K59.09 Other constipation (principal); R15.9 Full incontinence of feces; N39.3 Stress incontinence (female) (male); Z73.6 Limitation of activities due to disability | CPT/HCPCS: 97110; 97140; 97530 ==

== ENCOUNTER 2025-02-01 15:24 | Emergency (ER) | payer MEDICARE, OTHER, SELFPAY ==
[2025-02-01 15:26] VITALS: BP 116/76
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
[2025-02-01] MEDS: ADACEL 0.5 ML IM (15:53)
== END 2025-02-01 16:08 | disposition home or self-care (01) ==
LOC: EMR 15:24
PROVIDERS: EMERGENCY PHYSICIAN Emergency Medicine; FAMILY PHYSICIAN Family Medicine
DX: S61.432A Puncture wound without foreign body of left hand, initial encounter (principal); W34.00XA Accidental discharge from unspecified firearms or gun, initial encounter; Z23 Encounter for immunization; E78.00 Pure hypercholesterolemia, unspecified; F41.8 Other specified anxiety disorders; I10 Essential (primary) hypertension; I48.91 Unspecified atrial fibrillation; J44.89 Other specified chronic obstructive pulmonary disease; N40.0 Benign prostatic hyperplasia without lower urinary tract symptoms; Z80.9 Family history of malignant neoplasm, unspecified; Z82.49 Family history of ischemic heart disease and other diseases of the circulatory system; Z85.828 Personal history of other malignant neoplasm of skin; Z87.891 Personal history of nicotine dependence
CPT/HCPCS: 99283; 90471; 73130; 90715

== ENCOUNTER 2025-02-15 10:14 | Outpatient (RCR) | payer MEDICARE, OTHER, SELFPAY | END 2025-02-15 23:59 | disposition home or self-care (01) | LOC: RPT 10:14 | PROVIDERS: ATTENDING PHYSICIAN Internal Medicine; FAMILY PHYSICIAN Family Medicine | DX: K59.09 Other constipation (principal); R15.9 Full incontinence of feces; N39.3 Stress incontinence (female) (male); Z73.6 Limitation of activities due to disability | CPT/HCPCS: 97110; 97140; 97530 ==

== ENCOUNTER 2025-03-01 13:09 | Outpatient (RCR) | payer MEDICARE, OTHER, SELFPAY | END 2025-03-01 23:59 | disposition home or self-care (01) | LOC: RPT 13:09 | PROVIDERS: ATTENDING PHYSICIAN Internal Medicine; FAMILY PHYSICIAN Family Medicine | DX: K59.09 Other constipation (principal); R15.9 Full incontinence of feces; N39.3 Stress incontinence (female) (male); Z73.6 Limitation of activities due to disability | CPT/HCPCS: 97110; 97140; 97530 ==